=== PATIENT | female | born 1955 | race Caucasian/White ===

== ENCOUNTER 2017-01-10 11:34 | Outpatient (CLI) ==
[2016-04-14 07:38] VITALS: BMI 32.3
--- NOTE | 2017-01-10 12:17 | CT ---
EXAM: CT BRAIN HISTORY: Dizziness and giddiness TECHNIQUE: CT brain without intravenous contrast. 5-mm axial sections with Reformations. COMPARISON: 05/08/2015 FINDINGS: There is mild generalized atrophy and probable mild chronic microvascular ischemic change. These fi ndings are stable. Brain otherwise is unremarkable without distinct evidence of hemorrhage or large vessel distribution recent ischemic infarction. There is no suggestion of acute hydrocephalus or weinberg bdural fluid collection. No mass or mass effect. Cranium is within normal limits. Mastoid air cells are aerated. The visualized paranasal sinuses are clear. IMPRESSION: No acute intracranial process.
[2017-01-10 14:07] LABS: BASOPHILS % (AUTO) 0.9 % (0.0-3.0); EOSINOPHILS # (AUTO) 0.1 K/ul (0.0-0.7); HEMATOCRIT 37.1 % (37.0-47.0); HEMOGLOBIN 12.4 g/dl (12.0-16.0); IMMATURE GRANULOCYTE % (AUTO) 0.2 % (0.0-5.0); LYMPHOCYTES # (AUTO) 1.5 K/uL (0.60-3.4); LYMPHOCYTES % (AUTO) 34.2 (10.0-50.0); MEAN CORPUSCULAR HEMOGLOBIN 30.7 pg (27.0-31.0); MEAN CORPUSCULAR HGB CONC 33.4 (31.8-35.4); MEAN CORPUSCULAR VOLUME 91.8 fl (81.0-99.0); MONOCYTES # (AUTO) 0.3 K/uL (0.4-2.0); MONOCYTES % (AUTO) 6.3 (0-10); NEUTROPHILS # (AUTO) 2.4 K/ul (2.0-6.9); NEUTROPHILS % (AUTO) 55.4; PLATELET COUNT 240 10^3/uL (140-440); RED BLOOD COUNT 4.04 10^6/ul (4.20-5.40)
[2017-01-10 14:09] LABS: BILIRUBIN,URINE Negative (NEGATIVE); KETONES,URINE Negative (NEGATIVE); LEUKOCYTE ESTERASE ,URINE Trace (NEGATIVE); NITRITE,URINE Positive (NEGATIVE); PH,URINE 5.5 (5-9); PROTEIN,URINE Negative (NEGATIVE); URINE, BLOOD Negative (NEGATIVE)
[2017-01-10 14:13] LABS: ADD URINE MICROSCOPIC YES
[2017-01-10 14:14] LABS: BACTERIA,URINE 2+ (NOT PRESENT)
[2017-01-10 14:21] LABS: ALBUMIN 3.7 g/dL (3.4-5.0); ALBUMIN/GLOBULIN RATIO 1.19; ANION GAP 11.9; BILIRUBIN,TOTAL 0.39 mg/dL (0.00-1.20); BUN/CREATININE RATIO 9.19; CALCIUM 9.2 mg/dL (8.2-10.2); CHOL/HDL RATIO 3.3 (4.5-5.5); CREATININE 0.87 mg/dL (0.60-1.30); POTASSIUM 3.9 mmol/L (3.5-5.10); TOTAL PROTEIN 6.8 g/dL (5.8-8.1)
== END 2017-01-10 11:35 | disposition home or self-care (01) ==
LOC: RAD 11:34
PROVIDERS: ATTEND Emergency Medicine
DX: R55 Syncope and collapse (principal); R42 Dizziness and giddiness
CPT/HCPCS: 36415; 80053; 80061; 81001; 85025; 87086; 87186

== ENCOUNTER 2017-01-11 15:30 | Outpatient (CLI) ==
[2016-04-14 07:38] VITALS: BMI 32.3
--- NOTE | 2017-01-11 16:07 | US ---
EXAM: Bilateral carotid artery Doppler History: Syncope and collapse. Technique: Multiple sonographic images through the bilateral internal carotid arteries were obtaine d. Color duplex Doppler was used to interrogate vascular flow. Findings: The right ICA peak systolic velocities within normal limits measuring 1.0 meters per second. The ri ght ICA/cca PSV ratio is normal at 1.4. The right vertebral artery is patent and demonstrates anteg rade flow. Ozuna scale findings demonstrate no significant plaque buildup. The left ICA peak systolic velocity is moderately elevated measuring 1.6 meters per second. The lef t ICA/cca PSV ratio is normal at 1.8. The left vertebral artery is patent and demonstrates antegrad e flow. The left internal carotid artery is tortuous. Ozuna scale findings demonstrate no significa nt plaque buildup. Impression: No significant stenosis of the bilateral internal carotid arteries. The elevated left ICA peak systolic velocity is most likely spurious due to the tortuosity.
== END 2017-01-11 15:31 | disposition home or self-care (01) ==
LOC: RAD 15:30
PROVIDERS: ATTEND Emergency Medicine
DX: R55 Syncope and collapse (principal); R42 Dizziness and giddiness

== ENCOUNTER 2017-01-13 14:38 | Outpatient (CLI) ==
[2017-01-13 14:51] VITALS: BMI 29.0
== END 2017-01-13 14:39 | disposition critical access hospital (66) ==
LOC: AMBL 14:38
PROVIDERS: ATTEND Internal Medicine Geriatric Medicine
DX: R07.9 Chest pain, unspecified (principal); G43.909 Migraine, unspecified, not intractable, without status migrainosus; R10.9 Unspecified abdominal pain

== ENCOUNTER 2017-01-13 14:46 | Emergency (ER) ==
[2017-01-13 14:51] VITALS: BP 148/59; TEMP 98.6; BMI 29.0
[2017-01-13] MEDS ORDERED: ZOFRAN 4 MG/2 ML IVP STA (15:05)
--- NOTE | 2017-01-13 15:05 | ED.PDOC ---
General ED Provider: Dr. ZULEMA SAAB Chief Complaint: Headache Stated Complaint: Patient states she woke up this morning with headache nauea and vomiting. Time Seen by Physician: 15:05 Mode of Arrival: Ambulance Information Source: Patient, EMT Exam Limitations: No limitations [facility] and Triage Documentation Reviewed and Agree: Yes Neurological Complaint Exam - Headache Complaint/Exam Onset: Sudden Duration: 1 day Timing: Constant Worst Headache Ever: No Initial Severity: Severe Current Severity: Severe Character: Reports: Typical headache Alleviating: Reports: None Associated Signs and Symptoms: Reports: Nausea, Vomiting. Denies: Neck pain Related History: Reports: Similar episode Related Surgical History: Reports: None SAH Risk Factors: Reports: None Meningitis Risk Factors: Reports: None SDH Risk Factors: Reports: None Temporal Arteritis Risk Factors: Reports: None Normal Head CT Within Last 12 Months: Yes (less than one week ago. ) Fundoscopic Exam: Present: Normal Findings Papilledema Present: No Temporal Artery Tenderness: Present: None Sinus Tenderness: Present: None TMJ Tenderness: Present: None Glascow Coma Scale (see protocol): 15 Meningeal Signs Positive: No Pain on Passive Flexion-Positive Kernig's: No ROM Limited In: No Limitiations Focal Weakness: Present: None Focal Sensory Loss: Present: None Gait: Normal Nystagmus Present: No Gag Reflex Present: Yes [id number]: Abnormal right Romberg Test Positive: No Babinski Sign: Negative Right, Negative Left Heel to Toe Normal: No Differential Diagnoses: Migraine, Sinus Headache, Viral Syndrome Review of Systems - Review Of Systems Constitutional: Reports: Loss of appetite Eyes: Reports: Photophobia Ears, Nose, Mouth, Throat: Reports: No symptoms Respiratory: Reports: No symptoms Cardiac: Reports: Chest pain (across her chest mostly from vomiting. ) GI: Reports: Nausea, Poor appetite, Vomiting : Reports: No symptoms Musculoskeletal: Reports: No symptoms Skin: Reports: No symptoms Neurological: Reports: Anxiety, Headache Endocrine: Reports: No symptoms Hematologic/Lymphatic: Reports: No symptoms All Other Systems: Reviewed and Negative Past Medical History - Past Medical History Endocrine: Reports: Dyslipidemia Cardiovascular: Reports: None Respiratory: Reports: None Hematological: Reports: None Gastrointestinal: Reports: None Genitourinary: Reports: UTI (recenty diagnosed on antibiotics. ) Neuro/Psych: Reports: Migraine, Depression Musculoskeletal: Reports: Arthritis, Other Cancer: Reports: None Last Menstrual Period: NONE Other Pertinent Past Medical History: Arthritis - Surgical History General Surgical History: Reports: Hysterectomy, Tubal ligation, Cholecystectomy , Tonsillectomy, Pacemaker, Other (Breast lump ) - Family History Family History: Reports: None - Social History Smoking Status: Never smoker Hx Substance Use: No Alcohol Screening: None Physical Exam - Physical Exam Appearance: Ill-appearing, Well-nourished Ill-appearing: Moderate Pain Distress: Severe Eyes: BERRY, EOMI, Conjunctiva clear ENT: Ears normal, Nose normal, Oropharynx normal Neck: Supple Respiratory: Airway patent, Breath sounds clear, Breath sounds equal, Respirations nonlabored Cardiovascular: RRR, Pulses normal, No rub, No murmur GI/: Soft, Nontender, No masses, Bowel sounds normal, No Organomegaly Musculoskeletal: Normal strength, ROM intact, No edema, No calf tenderness Skin: Warm, Dry, Normal color Neurological: Sensation intact, Motor intact, Reflexes intact, Cranial nerves intact, Alert, Oriented Psychiatric: Affect appropriate, Mood appropriate Interpretation - Radiology Interpretation Radiology Interpretation By: Radiologist Radiology Results: Negative Exam Interpreted: CT Scan (reviewed recent CTdone on the December) Radiology Interpretation By: ED Physician Radiology Results: Negative Exam Interpreted: Portable CXR - EKG Interpretation Time of EKG #1: 15:15 Rate: Normal Rhythm: Sinus Ectopy: None [place]: NL ST Segment: Normal Critical Care Note - Critical Care Note Total Time (mins): 0 Course - Course Orders, Labs, Meds: Orders Category Date Time Status EKG-(ED ONLY) Stat CARDIO 01/13/17 15:05 Ordered ED IV/MEDIPORT/POWERPORT .ONCE EMERGENCY 01/13/17 15:06 Active AMYLASE Stat LAB 01/13/17 15:05 Ordered CBC W/ AUTO DIFF Stat LAB 01/13/17 15:05 Ordered COMPREHENSIVE METABOLIC PANEL Stat LAB 01/13/17 15:05 Ordered CREATINE KINASE Stat LAB 01/13/17 15:05 Ordered LIPASE Stat LAB 01/13/17 15:05 Ordered TROPONIN I Stat LAB 01/13/17 15:05 Ordered URINALYSIS C & S IF INDICATED Stat LAB 01/13/17 15:06 Uncollected 0.9 % Sodium Chloride [Saline Flush] MEDS 01/13/17 15:06 Ordered 1 syr IVF PRN PRN Ketorolac Tromethamine [Toradol] MEDS 01/13/17 15:08 Discontinued 30 mg IVP ONCE STA Ondansetron HCl/Pf [Zofran 4 mg/2 ml] MEDS 01/13/17 15:05 Discontinued 4 mg IVP ONCE STA Sodium Chloride 0.9% [Sodium Chloride] 1,000 ml MEDS 01/13/17 15:06 Active IV BOLUS CHEST, 1V AP ONLY Stat RADS 01/13/17 15:05 Ordered Medications Generic Name Dose Route Start Last Admin Trade Name Freq PRN Reason Stop Dose Admin Sodium Chloride 1,000 mls @ 1,000 mls/hr 01/13/17 15:06 Sodium Chloride IV 01/13/17 16:05 BOLUS STA Sodium Chloride 1 syr 01/13/17 15:06 Saline Flush IVF PRN PRN To flush IV Discontinued Medications Generic Name Dose Route Start Last Admin Trade Name Freq PRN Reason Stop Dose Admin Ketorolac Tromethamine 30 mg 01/13/17 15:08 Toradol IVP 01/13/17 15:09 ONCE STA Ondansetron HCl 4 mg 01/13/17 15:05 Zofran 4 Mg/2 Ml IVP 01/13/17 15:06 ONCE STA Vital Signs: Temp Pulse Resp BP Pulse Ox 01/13/17 14:46 98.6 F 100 H 20 148/59 H 99 Departure - Departure Time of Disposition: 16:01 Disposition: HOME SELF-CARE Discharge Problem: Classic migraine Qualifiers: Status migrainosus presence: without status migrainosus Intractability: not intractable Qualifier Code: (G43.109) Migraine with aura, not intractable, without status migrainosus Instructions: Migraine Headache (ED) Condition: Fair Pt referred to PMD for follow-up: Yes Additional Instructions: Push fluids Rest Follow up with PCP in 3 days Allergies/Adverse Reactions: Allergies tramadol HCl [From Ultra] Adverse Reaction (Verified 01/13/17 14:52) Home Medications: Ambulatory Orders Estrogens, Conjugated [Premarin] 1.25 mg PO DAILY 09/16/14 Ranitidine HCl [Zantac] 150 mg PO ONCE PRN 07/11/15 Disposition Discussed With: Patient
[2017-01-13] MEDS ORDERED: SODIUM CHLORIDE 1,000 ML IV STA (15:06)
[2017-01-13] MEDS ORDERED: TORADOL IVP STA (15:08)
[2017-01-13 15:20] LABS: BASOPHILS % (AUTO) 0.8 % (0.0-3.0); EOSINOPHILS # (AUTO) 0.1 K/ul (0.0-0.7); HEMATOCRIT 38.5 % (37.0-47.0); IMMATURE GRANULOCYTE % (AUTO) 0.2 % (0.0-5.0); LYMPHOCYTES # (AUTO) 1.4 K/uL (0.60-3.4); LYMPHOCYTES % (AUTO) 26.4 (10.0-50.0); MEAN CORPUSCULAR HEMOGLOBIN 30.1 pg (27.0-31.0); MEAN CORPUSCULAR HGB CONC 33.8 (31.8-35.4); MEAN CORPUSCULAR VOLUME 89.1 fl (81.0-99.0); MONOCYTES # (AUTO) 0.3 K/uL (0.4-2.0); NEUTROPHILS # (AUTO) 3.5 K/ul (2.0-6.9); NEUTROPHILS % (AUTO) 66.6; PLATELET COUNT 249 10^3/uL (140-440); RED BLOOD COUNT 4.32 10^6/ul (4.20-5.40); WHITE BLOOD COUNT 5.19 K/ul (4.6-10.2)
[2017-01-13 15:28] LABS: ADD URINE MICROSCOPIC NO; BILIRUBIN,URINE Negative (NEGATIVE); KETONES,URINE Negative (NEGATIVE); LEUKOCYTE ESTERASE ,URINE Negative (NEGATIVE); NITRITE,URINE Negative (NEGATIVE); PROTEIN,URINE Negative (NEGATIVE); URINE, BLOOD Negative (NEGATIVE)
--- NOTE | 2017-01-13 15:30 | DI ---
Exam: Single x-ray of the chest. Comparison: 12/28/2014. Reason for exam: Chest pain. FINDINGS: No pneumothorax, pleural effusion, or focal consolidation. The cardiac silhouette is not enlarged. The imaged osseous structures are unremarkable without acute fracture. Impression: No acute cardiopulmonary process.
[2017-01-13 15:46] LABS: ALANINE AMINOTRANSFERASE 11 U/L (12-78); ALBUMIN 3.7 g/dL (3.4-5.0); ALBUMIN/GLOBULIN RATIO 1.28; ALKALINE PHOSPHATASE 75 U/L (53-141); AMYLASE 40 U/L (25-115); ANION GAP 12.3; ASPARTATE AMINO TRANSFERASE 11 U/L (15-37); BILIRUBIN,TOTAL 0.45 mg/dL (0.00-1.20); BLOOD UREA NITROGEN 7 mg/dL (7-18); BUN/CREATININE RATIO 8.23; CALCIUM 9.2 mg/dL (8.2-10.2); CARBON DIOXIDE 23 mmol/L (23-31); CHLORIDE 111 mmol/L (98-107); CREATINE KINASE 69 U/L; CREATININE 0.85 mg/dL (0.60-1.30); GLUCOSE 114 mg/dL (82-115); LIPASE 18 U/L (8-78); POTASSIUM 3.3 mmol/L (3.5-5.10); SODIUM 143 mmol/L (136-145); TOTAL PROTEIN 6.6 g/dL (5.8-8.1)
== END 2017-01-13 16:23 | disposition home or self-care (01) ==
LOC: ED 14:46
DX: G43.109 Migraine with aura, not intractable, without status migrainosus (principal)
CPT/HCPCS: 36415; 80053; 81001; 82150; 82550; 83690; 84484; 85025; 93005; 93010; 96361; 96374; 96375; 99284

== ENCOUNTER 2017-02-25 14:03 | Outpatient (CLI) ==
[2017-02-25 14:23] VITALS: BMI 30.2
== END 2017-02-25 14:04 | disposition home or self-care (01) ==
LOC: AMBL 14:03
PROVIDERS: ATTEND Emergency Medicine
DX: R53.1 Weakness (principal); R42 Dizziness and giddiness

== ENCOUNTER 2017-02-25 14:15 | Emergency (ER) ==
[2017-02-25 14:23] VITALS: TEMP 97.5; BMI 30.2
[2017-02-25] MEDS ORDERED: SODIUM CHLORIDE IV STA (14:27)
[2017-02-25] MEDS ORDERED: ADDITIVE ONLY IV STA (14:27)
[2017-02-25] MEDS ORDERED: POTASSIUM CHLORIDE IV STA (14:27)
--- NOTE | 2017-02-25 14:34 | ED.PDOC ---
General ED Provider: Dr. ELIU THOMPSON JR Chief Complaint: Dizziness Stated Complaint: works at local [employer]--states shortly after arriving for work this am developed dizziness which did not get better--able to eat meals today-dizziness all the time--no change when changes position[End] 1230 97.5 75 20 100 124/66 had freq bouts of diarrhea during nite--none today[ End]diarhea for two days using green OTC pill. : 01/13/17 Dr. ZULEMA Rider 30 mg Ondansetron 4 :Migraine. : 04/02/16 : Dr. SINDHU Lew Care Provider: CARLA FAGAN Headache. : 03/04/16 ROTICH: Earache. : 12/31/15 : Tooth Problem: Rt lower molars Causing H/A. Anacin migraine. : 04/07 Acute Headache (ED)[Premarin] 1.25 m[Zantac] 150. :: 10/10/15 Dilaudid 1 mg [Toradol 60 mg Phenergan 25 mg Migraine,CT05/06 normal. : 10/03 Morphine 4 Zofran 4. PremarinFioricet Zyrtec-DRanitidine HCl. : 06/24/15 Headache Toradol 60 mg Solu-Medrol 125 mg. : Negative: CT Scan (OLD CT FROM 05/08/15 SHOWS FLUID IN PETROUS CHRONIC SMALL VESSEL DISEASE OTHERWISE NORTMAL) . Ketorolac Tromethamine 60 Phenergan 25: Acute Headache (ED), Toothache (ED) Time Seen by Physician: 14:20 Mode of Arrival: Ambulance Information Source: Patient, EMT Exam Limitations: No limitations, Dementia Primary Care [facility] Nursing and Triage Documentation Reviewed and Agree: No Review of Systems - Review Of Systems Constitutional: Reports: Malaise, Weakness Eyes: Reports: No symptoms Ears, Nose, Mouth, Throat: Reports: No symptoms Respiratory: Reports: No symptoms Cardiac: Reports: No symptoms GI: Reports: Diarrhea : Reports: No symptoms Musculoskeletal: Reports: No symptoms Skin: Reports: No symptoms Neurological: Reports: Other (dizziness light headed minmal spinning sensation mostly lightheaded) Endocrine: Reports: No symptoms Hematologic/Lymphatic: Reports: No symptoms All Other Systems: Other Past Medical History - Past Medical History Endocrine: Reports: Dyslipidemia Cardiovascular: Reports: None Respiratory: Reports: None Hematological: Reports: None Gastrointestinal: Reports: None Genitourinary: Reports: UTI Neuro/Psych: Reports: Migraine, Depression Musculoskeletal: Reports: Arthritis Cancer: Reports: None Last Menstrual Period: hysterectomy - Surgical History General Surgical History: Reports: Hysterectomy, Tubal ligation, (c- sec x3,), Cholecystectomy, Tonsillectomy, Pacemaker, Orthopedic (neck surgery ), Other (Breast lump, lump removed both breasts, ) - Family History Family History: Reports: None - Social History Smoking Status: Never smoker Hx Substance Use: No Alcohol Screening: None Physical Exam - Physical Exam Appearance: Well-appearing Pain Distress: Mild Eyes: BERRY, EOMI, Conjunctiva clear ENT: Ears normal, Nose normal, Oropharynx normal Neck: Supple Respiratory: Airway patent, Breath sounds clear, Breath sounds equal, Respirations nonlabored Cardiovascular: RRR, Pulses normal, No rub, No murmur GI/: Soft, Nontender, No masses, Bowel sounds normal, No Organomegaly Musculoskeletal: Normal strength, ROM intact, No edema, No calf tenderness Skin: Warm, Dry, Normal color Neurological: Sensation intact, Motor intact, Reflexes intact, Cranial nerves intact, Alert, Oriented Psychiatric: Affect appropriate, Mood appropriate Interpretation - Radiology Interpretation Radiology Interpretation By: ED Physician Radiology Results: Negative Exam Interpreted: CXR Radiology Interpretation By: Radiologist Radiology Results: No acute changes Exam Interpreted: CXR - EKG Interpretation Time of EKG #1: 14:35 Rate: Normal Rhythm: Sinus ST Segment: Other (low voltage no acute changes) Re-Evaluation - Re-Evaluation Time of Re-Evaluation: 16:15 (still dizi) Critical Care Note - Critical Care Note Total Time (mins): 0 Course - Course Hematology/Chemistry: 02/25/17 14:33 02/25/17 14:33 Orders, Labs, Meds: Lab Review 02/25/17 02/25/17 14:33 15:45 WBC 5.47 RBC 3.88 L Hgb 11.9 L Hct 35.2 L MCV 90.7 MCH 30.7 MCHC 33.8 RDW Coeff of [place] 13.2 Plt Count 209 Immature Gran % (Auto) 0.2 Neut % (Auto) 65.1 Lymph % (Auto) 26.7 [place] % (Auto) 5.3 Eos % (Auto) 1.8 Baso % (Auto) 0.9 Immature Gran # (Auto) 0.0 Neut # 3.6 Lymph # 1.5 [place] # 0.3 L Eos # 0.1 Baso # 0.1 D-Dimer (Manual) 486.20 Sodium 143 Potassium 3.5 Chloride 109 H Carbon Dioxide 26 Anion Gap 11.5 BUN 11 Creatinine 0.91 Estimated GFR (MDRD) 63.00 BUN/Creatinine Ratio 12.08 Glucose 76 L Calcium 8.7 Total Bilirubin 0.29 AST 9 L ALT 11 L Alkaline Phosphatase 74 Total Creatine Kinase 54 Troponin I < 0.0100 B-Natriuretic Peptide 28 Total Protein 6.3 Albumin 3.6 Globulin 2.7 Albumin/Globulin Ratio 1.33 Procalcitonin < 0.05 Urine Color Yellow Urine Clarity Clear Urine pH 7.0 Ur Specific [place] 1.015 Urine Protein Negative Urine Glucose (UA) Negative Urine Ketones Negative Urine Blood Negative Urine Nitrite Negative Urine Bilirubin Negative Urine Urobilinogen 0.2 Ur Leukocyte Esterase Negative Orders Category Date Time Status EKG-(ED ONLY) Stat CARDIO 02/25/17 14:26 Completed ED IV/MEDIPORT/POWERPORT .ONCE EMERGENCY 02/25/17 14:26 Active Orthostatic Vital Signs [ED ORTHOSTATIC VITAL SIGNS] . EMERGENCY 02/25/17 15: 51 Active ONCE B-TYPE NATRIURETIC PEPTIDE Stat LAB 02/25/17 14:33 Completed CBC W/ AUTO DIFF Stat LAB 02/25/17 14:33 Completed COMPREHENSIVE METABOLIC PANEL Stat LAB 02/25/17 14:33 Completed CREATINE KINASE Stat LAB 02/25/17 14:33 Completed D-DIMER Stat LAB 02/25/17 14:33 Completed PROCALCITONIN Stat LAB 02/25/17 14:33 Completed TROPONIN I Stat LAB 02/25/17 14:33 Completed URINALYSIS C & S IF INDICATED Stat LAB 02/25/17 15:45 Completed 0.9 % Sodium Chloride [Saline Flush] MEDS 02/25/17 14:26 Ordered 1 syr IVF PRN PRN Meclizine HCl [Antivert] MEDS 02/25/17 15:51 Discontinued 25 mg PO ONCE STA Potassium Chloride in 0.9%NaCl [Sodium Chloride 0.9%- MEDS 02/25/17 14:34 Active KCl 20 Meq] 1,000 ml IV 100 mls/hr CHEST, 1V AP ONLY Stat RADS 02/25/17 14:26 Completed Medications Generic Name Dose Route Start Last Admin Trade Name Richie PRN Reason Stop Dose Admin Potassium Chloride/Sodium Chloride 1,000 mls @ 100 mls/hr 02/25/17 14:34 Sodium Chloride 0.9%-Kcl 20 Meq IV 02/26/17 00:33 .Q10H STA Sodium Chloride 1 syr 02/25/17 14:26 Saline Flush IVF PRN PRN To flush IV Discontinued Medications Generic Name Dose Route Start Last Admin Trade Name Freq PRN Reason Stop Dose Admin Meclizine HCl 25 mg 02/25/17 15:51 02/25/17 15:59 Antivert PO 02/25/17 15:52 25 mg ONCE STA Administration Vital Signs: Temp Pulse Resp BP Pulse Ox 02/25/17 16:00 64 120/75 02/25/17 15:59 59 L 118/71 02/25/17 14:17 97.5 F L 75 20 124/66 100 Departure - Departure Time of Disposition: 15:27 Disposition: HOME SELF-CARE Discharge Problem: Dizziness, Vertigo, Dehydration Instructions: Vertigo (ED), Dehydration (ED) Condition: Good Pt referred to PMD for follow-up: Yes Additional Instructions: plenty of fluids for three days consider peptobismol only as needed for loose stools may try antivert for any dizziness(causes drowsiness) return if fever over 101.0 or if worse Please follow-up with PMD this week Prescriptions: Meclizine HCl [Antivert] 25 mg PO QID PRN #30 tablet PRN Reason: Dizziness Allergies/Adverse Reactions: Allergies tramadol HCl [From Ultra777 [place]] Adverse Reaction (Verified 02/25/17 14:27) Home Medications: Ambulatory Orders Estrogens, Conjugated [Premarin] 1.25 mg PO DAILY 09/16/14 Ranitidine HCl [Zantac] 150 mg PO ONCE PRN 07/11/15 Aspirin/Acetaminophen/Caffeine [Excedrin Extra Strength Caplet] 1 each PO DIRECTED PRN 01/16/17 Meclizine HCl [Antivert] 25 mg PO QID PRN #30 tablet 02/25/17
[2017-02-25 14:39] LABS: HEMATOCRIT 35.2 % (37.0-47.0); HEMOGLOBIN 11.9 g/dl (12.0-16.0); MEAN CORPUSCULAR HEMOGLOBIN 30.7 pg (27.0-31.0); MEAN CORPUSCULAR VOLUME 90.7 fl (81.0-99.0); RED BLOOD COUNT 3.88 10^6/ul (4.20-5.40); WHITE BLOOD COUNT 5.47 K/ul (4.6-10.2)
[2017-02-25 14:40] LABS: BASOPHILS # (AUTO) 0.1 K/uL (0-0.2); BASOPHILS % (AUTO) 0.9 % (0.0-3.0); EOSINOPHILS # (AUTO) 0.1 K/ul (0.0-0.7); EOSINOPHILS % (AUTO) 1.8 % (0.0-7.0); IMMATURE GRANULOCYTE % (AUTO) 0.2 % (0.0-5.0); LYMPHOCYTES # (AUTO) 1.5 K/uL (0.60-3.4); LYMPHOCYTES % (AUTO) 26.7 (10.0-50.0); MEAN CORPUSCULAR HGB CONC 33.8 (31.8-35.4); MONOCYTES # (AUTO) 0.3 K/uL (0.4-2.0); MONOCYTES % (AUTO) 5.3 (0-10); NEUTROPHILS # (AUTO) 3.6 K/ul (2.0-6.9); NEUTROPHILS % (AUTO) 65.1; PLATELET COUNT 209 10^3/uL (140-440)
--- NOTE | 2017-02-25 14:55 | DI ---
Exam: Single x-ray of the chest. Comparison: 01/13/2017. Reason for exam: Chest pain. FINDINGS: No pneumothorax, pleural effusion, or focal consolidation. The cardiac silhouette is not enlarged. The imaged osseous structures appear grossly unremarkable without acute fracture. Impression: No acute cardiopulmonary process.
[2017-02-25 15:09] LABS: ALANINE AMINOTRANSFERASE 11 U/L (12-78); ALBUMIN 3.6 g/dL (3.4-5.0); ALBUMIN/GLOBULIN RATIO 1.33; ALKALINE PHOSPHATASE 74 U/L (53-141); ANION GAP 11.5; ASPARTATE AMINO TRANSFERASE 9 U/L (15-37); BILIRUBIN,TOTAL 0.29 mg/dL (0.00-1.20); CALCIUM 8.7 mg/dL (8.2-10.2); CARBON DIOXIDE 26 mmol/L (23-31); CHLORIDE 109 mmol/L (98-107); CREATINE KINASE 54 U/L; CREATININE 0.91 mg/dL (0.60-1.30); GLUCOSE 76 mg/dL (82-115); POTASSIUM 3.5 mmol/L (3.5-5.10); SODIUM 143 mmol/L (136-145); TOTAL PROTEIN 6.3 g/dL (5.8-8.1)
[2017-02-25 15:23] LABS: BLOOD UREA NITROGEN 11 mg/dL (7-18); BUN/CREATININE RATIO 12.08
[2017-02-25 15:54] LABS: ADD URINE MICROSCOPIC NO; BILIRUBIN,URINE Negative (NEGATIVE); KETONES,URINE Negative (NEGATIVE); LEUKOCYTE ESTERASE ,URINE Negative (NEGATIVE); NITRITE,URINE Negative (NEGATIVE); PROTEIN,URINE Negative (NEGATIVE); URINE, BLOOD Negative (NEGATIVE)
[2017-02-25] MEDS: ANTIVERT PO STA (15:59)
[2017-02-25 16:01] VITALS: BP 130/66
[2017-02-25] MEDS: SODIUM CHLORIDE 0.9%-KCL 20 MEQ 1,000 ML IV STA (16:36)
== END 2017-02-25 17:13 | disposition home or self-care (01) ==
LOC: ED 14:15
DX: R42 Dizziness and giddiness (principal); R19.7 Diarrhea, unspecified; E78.5 Hyperlipidemia, unspecified; E86.0 Dehydration; Z95.0 Presence of cardiac pacemaker
CPT/HCPCS: 36415; 80053; 81001; 82550; 83880; 84145; 84484; 85025; 85379; 93005; 93010; 96360; 99283

== ENCOUNTER 2017-03-06 16:44 | Emergency (ER) ==
[2017-03-06 16:49] VITALS: BP 138/81; TEMP 97.8; BMI 28.5
[2017-03-06] MEDS ORDERED: MORPHINE 4 MG/ML SYRINGE IM STA ×2 (17:01→18:09)
[2017-03-06] MEDS ORDERED: ZOFRAN 4 MG/2 ML IM STA (17:01)
[2017-03-06 17:12] LABS: BASOPHILS # (AUTO) 0.1 K/uL (0-0.2); BASOPHILS % (AUTO) 0.5 % (0.0-3.0); EOSINOPHILS # (AUTO) 0.1 K/ul (0.0-0.7); EOSINOPHILS % (AUTO) 0.9 % (0.0-7.0); HEMATOCRIT 38.7 % (37.0-47.0); HEMOGLOBIN 13.3 g/dl (12.0-16.0); IMMATURE GRANULOCYTE % (AUTO) 0.2 % (0.0-5.0); LYMPHOCYTES # (AUTO) 1.6 K/uL (0.60-3.4); LYMPHOCYTES % (AUTO) 16.6 (10.0-50.0); MEAN CORPUSCULAR HEMOGLOBIN 30.6 pg (27.0-31.0); MEAN CORPUSCULAR HGB CONC 34.4 (31.8-35.4); MEAN CORPUSCULAR VOLUME 89.2 fl (81.0-99.0); MONOCYTES # (AUTO) 0.4 K/uL (0.4-2.0); MONOCYTES % (AUTO) 4.4 (0-10); NEUTROPHILS # (AUTO) 7.3 K/ul (2.0-6.9); NEUTROPHILS % (AUTO) 77.4; PLATELET COUNT 244 10^3/uL (140-440); RED BLOOD COUNT 4.34 10^6/ul (4.20-5.40); WHITE BLOOD COUNT 9.37 K/ul (4.6-10.2)
[2017-03-06 17:31] LABS: BILIRUBIN,URINE Negative (NEGATIVE); KETONES,URINE Negative (NEGATIVE); LEUKOCYTE ESTERASE ,URINE Negative (NEGATIVE); NITRITE,URINE Negative (NEGATIVE); PH,URINE 5.5 (5-9); PROTEIN,URINE Negative (NEGATIVE); URINE, BLOOD Negative (NEGATIVE)
[2017-03-06 17:32] LABS: ADD URINE MICROSCOPIC NO
[2017-03-06 17:36] LABS: ALBUMIN/GLOBULIN RATIO 1.29; ANION GAP 13.7; BILIRUBIN,TOTAL 0.34 mg/dL (0.00-1.20); BUN/CREATININE RATIO 12.19; CALCIUM 9.4 mg/dL (8.2-10.2); CREATININE 0.82 mg/dL (0.60-1.30); POTASSIUM 3.7 mmol/L (3.5-5.10); TOTAL PROTEIN 7.1 g/dL (5.8-8.1)
--- NOTE | 2017-03-06 18:02 | CT ---
EXAM: CT ABDOMEN AND PELVIS HISTORY: Abdominal pain TECHNIQUE: CT abdomen and pelvis without intravenous contrast. Images were reconstructed using 3 m m section thickness. Reformations were prepared. COMPARISON: 12/28/2014 FINDINGS: Diagnostic limitations exist without including contrast enhanced images. No focal hepatic or spleni c lesions. Gallbladder is absent. Pancreas, adrenal glands, kidneys and ureters appear normal. No rmal abdominal aorta. Stomach within normal limits. What probably represents the appendix has no evidence of inflammation . There is mild wall thickening of the colon in a relatively diffuse manner. The small bowel probab ly has mild fold thickening diffusely. There is no bowel obstruction. There appears to be a mass i n the cul-de-sac which is suggestive of a small uterus. Patient documents presented with this exam indicate previous hysterectomy. If there has been a hysterectomy, pelvic ultrasound is recommended for further evaluation and help exclude vaginal cuff or other regional pathology. Urinary bladder i s normal. No ascites. No abdominal wall hernia. The bones reveal moderate degenerative changes of the lower spine with mi ld scoliosis. Lung bases are free of acute infiltrate. No pneumoperitoneum. IMPRESSION: 1. Findings consistent with early enterocolitis. No bowel obstruction, free air or ascites. 2. There appears to be a mass in the cul-de-sac which is suggestive of a small uterus. Patient doc uments presented with this exam indicate previous hysterectomy. If there has been a hysterectomy, p elvic ultrasound is recommended for further evaluation and help exclude vaginal cuff or other region al pathology.
--- NOTE | 2017-03-06 18:11 | ED.PDOC ---
General ED Provider: Dr. SINDHU PEÑA Chief Complaint: Abdominal Pain Stated Complaint: abdominal pain Time Seen by Physician: 16:44 Mode of Arrival: Walk-In Information Source: Patient Exam Limitations: No limitations [facility] T[facility] Documentation Reviewed and Agree: Yes Review of Systems - Review Of Systems Constitutional: Reports: No symptoms Eyes: Reports: No symptoms Ears, Nose, Mouth, Throat: Reports: No symptoms Respiratory: Reports: No symptoms Cardiac: Reports: No symptoms GI: Reports: Abdominal pain : Reports: No symptoms Musculoskeletal: Reports: No symptoms Skin: Reports: No symptoms Neurological: Reports: No symptoms Endocrine: Reports: No symptoms Hematologic/Lymphatic: Reports: No symptoms All Other Systems: Reviewed and Negative Past Medical History - Past Medical History Endocrine: Reports: Dyslipidemia Cardiovascular: Reports: None Respiratory: Reports: None Hematological: Reports: None Gastrointestinal: Reports: None Genitourinary: Reports: UTI Neuro/Psych: Reports: Migraine, Depression Musculoskeletal: Reports: Arthritis Cancer: Reports: None Last Menstrual Period: none Other Pertinent Past Medical History: neck surgery 02/11/16 - Surgical History General Surgical History: Reports: Hysterectomy, Tubal ligation, (c- sec x3,), Cholecystectomy, Tonsillectomy, Pacemaker, Orthopedic (neck surgery ), Other (Breast lump, lump removed both breasts, ) - Family History Family History: Reports: None - Social History Smoking Status: Never smoker Hx Substance Use: No Alcohol Screening: None Physical Exam - Physical Exam Appearance: Well-appearing, No pain distress, Well-nourished Eyes: BERRY, EOMI, Conjunctiva clear ENT: Ears normal, Nose normal, Oropharynx normal Respiratory: Airway patent, Breath sounds clear, Breath sounds equal, Respirations nonlabored Cardiovascular: RRR, Pulses normal, No rub, No murmur GI/: Soft, Nontender, No masses, Bowel sounds normal, No Organomegaly Musculoskeletal: Normal strength, ROM intact, No edema, No calf tenderness Skin: Warm, Dry, Normal color Neurological: Sensation intact, Motor intact, Reflexes intact, Cranial nerves intact, Alert, Oriented Psychiatric: Affect appropriate, Mood appropriate Interpretation - Radiology Interpretation Radiology Interpretation By: Radiologist Radiology Results: Positive (possible vaginal cuff pathology pt made aware with adali at bedside) Critical Care Note - Critical Care Note Total Time (mins): 0 Course - Course Hematology/Chemistry: 03/06/17 17:05 03/06/17 17:05 Orders, Labs, Meds: Lab Review 03/06/17 03/06/17 17:00 17:05 WBC 9.37 RBC 4.34 Hgb 13.3 Hct 38.7 MCV 89.2 MCH 30.6 MCHC 34.4 RDW Coeff of [place] 13.3 Plt Count 244 Immature Gran % (Auto) 0.2 Neut % (Auto) 77.4 Lymph % (Auto) 16.6 [place] % (Auto) 4.4 Eos % (Auto) 0.9 Baso % (Auto) 0.5 Immature Gran # (Auto) 0.0 Neut # 7.3 H Lymph # 1.6 [place] # 0.4 Eos # 0.1 Baso # 0.1 Sodium 143 Potassium 3.7 Chloride 107 Carbon Dioxide 26 Anion Gap 13.7 BUN 10 Creatinine 0.82 Estimated GFR (MDRD) 71.00 BUN/Creatinine Ratio 12.19 Glucose 93 Calcium 9.4 Total Bilirubin 0.34 AST 10 L ALT 10 L Alkaline Phosphatase 80 Total Protein 7.1 Albumin 4.0 Globulin 3.1 Albumin/Globulin Ratio 1.29 Amylase 45 Lipase 25 Urine Color Yellow Urine Clarity Clear Urine pH 5.5 Ur Specific [place] 1.020 Urine Protein Negative Urine Glucose (UA) Negative Urine Ketones Negative Urine Blood Negative Urine Nitrite Negative Urine Bilirubin Negative Urine Urobilinogen 0.2 Ur Leukocyte Esterase Negative Orders Category Date Time Status AMYLASE Stat LAB 03/06/17 17:05 Completed CBC W/ AUTO DIFF Stat LAB 03/06/17 17:05 Completed COMPREHENSIVE METABOLIC PANEL Stat LAB 03/06/17 17:05 Completed LIPASE Stat LAB 03/06/17 17:05 Completed URINALYSIS C & S IF INDICATED Stat LAB 03/06/17 17:00 Completed Morphine Sulfate [Morphine 4 mg/ml Syringe] MEDS 03/06/17 17:01 Discontinued 4 mg IM ONCE STA Ondansetron HCl/Pf [Zofran 4 mg/2 ml] MEDS 03/06/17 17:01 Discontinued 4 mg IM ONCE STA CT ABDOMEN/PELVIS WO CONTRAST Stat RADS 03/06/17 17:00 Completed Medications Discontinued Medications Generic Name Dose Route Start Last Admin Trade Name Freq PRN Reason Stop Dose Admin Morphine Sulfate 4 mg 03/06/17 17:01 03/06/17 17:30 Morphine 4 Mg/Ml Syringe IM 03/06/17 17:02 4 mg ONCE STA Administration Ondansetron HCl 4 mg 03/06/17 17:01 03/06/17 17:29 Zofran 4 Mg/2 Ml IM 03/06/17 17:02 4 mg ONCE STA Administration Vital Signs: Temp Pulse Resp BP Pulse Ox 03/06/17 16:44 97.8 F 69 20 138/81 99 Departure - Departure Time of Disposition: 18:10 (need for pelvic U.S. discussed pt must follow up with [facility]) Disposition: HOME SELF-CARE Discharge Problem: Abdominal pain, Enterocolitis Instructions: Abdominal Pain (ED) Condition: Good Pt referred to PMD for follow-up: Yes Allergies/Adverse Reactions: Allergies tramadol HCl [From [facility]] Adverse Reaction (Verified 03/06/17 16:49) Home Medications: Ambulatory Orders Ranitidine HCl [Zantac] 150 mg PO ONCE PRN 07/11/15 Aspirin/Acetaminophen/Caffeine [Excedrin Extra Strength Caplet] 1 each PO DIRECTED PRN 01/16/17 Hydrocodone/Acetaminophen [[place] 10-325 Tablet] 1 each PO Q8HR #7 tablet
== END 2017-03-06 18:37 | disposition home or self-care (01) ==
LOC: ED 16:44
DX: K52.9 Noninfective gastroenteritis and colitis, unspecified (principal); R10.9 Unspecified abdominal pain
CPT/HCPCS: 36415; 80053; 81001; 82150; 83690; 85025; 96372; 99283

== ENCOUNTER 2017-03-09 09:08 | Outpatient (CLI) ==
--- NOTE | 2017-03-09 10:21 | US ---
Exam: Ozuna-scale and color Doppler ultrasonographic evaluation of the pelvis. Transvaginal probe was utilized for better anatomic visualization. Reason for exam: Generalized abdominal pain. Comparison: CT performed 03/06/2017. FINDINGS: The uterus is been removed. There is a cystic structure within the cervix measuring approximately 0 .31 x 0.23 x 0.32 cm likely a Nabothian cyst. The ovaries were not seen. There is free fluid seen in the right татьяна pelvis. Impression: 1. Small to moderate amount of free fluid seen in the right татьяна pelvis in the expected location of the right adnexa. 2. Nabothian cysts.
== END 2017-03-09 09:09 ==
LOC: RAD 09:08
PROVIDERS: ATTEND Emergency Medicine
DX: R10.84 Generalized abdominal pain (principal)

== ENCOUNTER 2017-08-05 12:56 | Emergency (ER) ==
[2017-08-05 13:02] VITALS: TEMP 98.1; BMI 27.4
[2017-08-05] MEDS ORDERED: ZOFRAN ODT PO STA ×2 (15:11→17:38)
--- NOTE | 2017-08-05 17:34 | ED.PDOC ---
General ED Provider: Dr. SWETHA ARMENTA Chief Complaint: Headache Stated Complaint: Hx migraine headaches. Onset flu symptoms this morning with nausea, vomiting and diarrhea Time Seen by Physician: 16:00 Mode of Arrival: Walk-In Information Source: Patient [facility] Nursing and Triage Documentation Reviewed and Agree: Yes Reviewed sepsis parameters & appropriate labs ordered?: Yes System Inflammatory Response Syndrome: Not Applicable Sepsis Protocol: For patient's 13 years and over: Temp is 96.8 and below OR 101 and greater Pulse >90 BPM Resp >20/minute Acutely Altered Mental Status Are patient's symptoms suggestive of a new infection, such as: -Pneumonia -Skin, Soft Tissue -Endocarditis -UTI -Bone, Joint Infection -Implantable Device -Acute Abdominal Infection -Wound Infection -Meningitis -Blood Stream Catheter Infection -Unknown System Inflammatory Response Syndrome: Not Applicable Neurological Complaint Exam - Headache Complaint/Exam Onset: Sudden Symptoms Are: Still present Timing: Constant Episodes Lasting: Minutes Worst Headache Ever: No Initial Severity: Moderate Current Severity: Mild Location: Frontal Character: Reports: Pressure, Typical headache Aggravating: Reports: Position change, Bright lights Alleviating: Reports: Rest Associated Signs and Symptoms: Reports: Dizziness, Nausea, Vomiting Related History: Reports: Similar episode Related Surgical History: Reports: None SAH Risk Factors: Reports: None Meningitis Risk Factors: Reports: None SDH Risk Factors: Reports: None Temporal Arteritis Risk Factors: Reports: None Normal Head CT Within Last 12 Months: Yes Fundoscopic Exam: Present: Normal Findings Papilledema Present: Yes Temporal Artery Tenderness: Present: None Meningeal Signs Positive: No Pain on Passive Flexion-Positive Kernig's: No ROM Limited In: No Limitiations Focal Weakness: Present: None Focal Sensory Loss: Present: None Gait: Normal Nystagmus Present: No Gag Reflex Present: Yes [id number]: Normal Findings Heel to Toe Normal: No Differential Diagnoses: Tension Headache, Viral Syndrome, Other (migraine headache) Review of Systems - Review Of Systems Constitutional: Reports: Weakness Eyes: Reports: Photophobia Ears, Nose, Mouth, Throat: Reports: No symptoms Respiratory: Reports: No symptoms Cardiac: Reports: No symptoms GI: Reports: Diarrhea, Nausea, Vomiting : Reports: No symptoms Musculoskeletal: Reports: No symptoms Skin: Reports: No symptoms Neurological: Reports: Headache Endocrine: Reports: No symptoms Hematologic/Lymphatic: Reports: No symptoms All Other Systems: Reviewed and Negative Past Medical History - Past Medical History Endocrine: Reports: Dyslipidemia Cardiovascular: Reports: None Respiratory: Reports: None Hematological: Reports: None Gastrointestinal: Reports: None Genitourinary: Reports: UTI Neuro/Psych: Reports: Migraine, Depression Musculoskeletal: Reports: Arthritis Cancer: Reports: None Last Menstrual Period: na Other Pertinent Past Medical History: neck surgery 02/11/16 - Surgical History General Surgical History: Reports: Hysterectomy, Tubal ligation, (c- sec x3,), Cholecystectomy, Tonsillectomy, Pacemaker, Orthopedic (neck surgery ), Other (Breast lump, lump removed both breasts, ) - Family History Family History: Reports: None - Social History Smoking Status: Never smoker Hx Substance Use: No Alcohol Screening: None - Immunizations Tetanus Shot up to Date: No Physical Exam - Physical Exam Appearance: Ill-appearing Ill-appearing: Mild Pain Distress: Moderate Eyes: BERRY, EOMI, Conjunctiva clear ENT: Ears normal, Nose normal, Oropharynx normal Neck: Supple Respiratory: Airway patent, Breath sounds clear, Breath sounds equal Cardiovascular: RRR, Pulses normal GI/: Soft, Nontender, No masses, Bowel sounds normal Musculoskeletal: Normal strength, ROM intact, No edema, No calf tenderness Skin: Warm, Dry, Normal color Neurological: Sensation intact, Motor intact, Reflexes intact, Cranial nerves intact, Alert, Oriented Psychiatric: Affect appropriate Re-Evaluation - Re-Evaluation Time of Re-Evaluation: 18:30 Status: Unchanged Vital Signs Stable: Yes Appearance: NAD Lungs: Clear Skin: Warm and Dry Neuro: Alert and Oriented X3 CV: RRR Additional Comments: Continues with cephalgia/ unreleived by Toradol/normally requires Morpine Course - Course Hematology/Chemistry: 08/05/17 15:22 08/05/17 15:22 Orders, Labs, Meds: Lab Review 08/05/17 08/05/17 08/05/17 15:22 15:22 15:22 WBC 6.23 RBC 4.17 L Hgb 12.8 Hct 37.2 MCV 89.2 MCH 30.7 MCHC 34.4 RDW Coeff of Nixon 12.9 Plt Count 225 Immature Gran % (Auto) 0.2 Neut % (Auto) 68.8 Lymph % (Auto) 24.7 [place] % (Auto) 4.2 Eos % (Auto) 1.1 Baso % (Auto) 1.0 Immature Gran # (Auto) 0.0 Neut # 4.3 Lymph # 1.5 [place] # 0.3 L Eos # 0.1 Baso # 0.1 Sodium 142 Potassium 4.0 Chloride 111 H Carbon Dioxide 25 Anion Gap 10.0 BUN 10 Creatinine 0.67 Estimated GFR (MDRD) 89.00 BUN/Creatinine Ratio 14.92 Glucose 107 Calcium 8.8 Total Bilirubin 0.3 AST 10 L ALT 10 L Alkaline Phosphatase 76 Total Protein 6.2 Albumin 3.4 Globulin 2.8 Albumin/Globulin Ratio 1.21 Urine Color Urine Clarity Urine pH Ur Specific [place] Urine Protein Urine Glucose (UA) Urine Ketones Urine Blood Urine Nitrite Urine Bilirubin Urine Urobilinogen Ur Leukocyte Esterase Urine Microscopic RBC Ur Squamous Epith Cells Urine Bacteria Influenza A (Rapid) Negative by naat Influenza B (Rapid) Negative by naat 08/05/17 16:30 WBC RBC Hgb Hct MCV MCH MCHC RDW Coeff of Nixon Plt Count Immature Gran % (Auto) Neut % (Auto) Lymph % (Auto) [place] % (Auto) Eos % (Auto) Baso % (Auto) Immature Gran # (Auto) Neut # Lymph # [place] # Eos # Baso # Sodium Potassium Chloride Carbon Dioxide Anion Gap BUN Creatinine Estimated GFR (MDRD) BUN/Creatinine Ratio Glucose Calcium Total Bilirubin AST ALT Alkaline Phosphatase Total Protein Albumin Globulin Albumin/Globulin Ratio Urine Color Yellow Urine Clarity Clear Urine pH 7.5 Ur Specific [place] 1.015 Urine Protein Negative Urine Glucose (UA) Negative Urine Ketones Negative Urine Blood Trace-intact Urine Nitrite Negative Urine Bilirubin Negative Urine Urobilinogen 0.2 Ur Leukocyte Esterase Trace Urine Microscopic RBC 0-2 Ur Squamous Epith Cells Not present Urine Bacteria 1+ Influenza A (Rapid) Influenza B (Rapid) Orders Category Date Time Status CBC W/ AUTO DIFF Stat LAB 08/05/17 15:22 Completed CMP [COMPREHENSIVE METABOLIC PANEL] Stat LAB 08/05/17 15:22 Completed FLU A/B MOLECULAR Stat LAB 08/05/17 15:22 Completed MOLECULAR GROUP A STREP Stat LAB 08/05/17 15:22 Completed URINALYSIS C & S IF INDICATED Stat LAB 08/05/17 16:30 Completed URINE CULTURE Routine LAB 08/05/17 16:30 Received Ketorolac Tromethamine [Toradol] MEDS 08/05/17 17:38 Discontinued 30 mg IM ONCE STA Morphine Sulfate [Morphine 2 mg/ml Syringe] MEDS 08/05/17 19:05 Stat 2 mg IM ONCE STA Ondansetron [Zofran Odt] MEDS 08/05/17 15:11 Discontinued 4 mg PO ONCE STA Ondansetron [Zofran Odt] MEDS 08/05/17 17:38 Discontinued 4 mg PO ONCE STA Medications Discontinued Medications Generic Name Dose Route Start Last Admin Trade Name Richie PRN Reason Stop Dose Admin Ketorolac Tromethamine 30 mg 08/05/17 17:38 08/05/17 17:48 Toradol IM 08/05/17 17:39 30 mg ONCE STA Administration Morphine Sulfate 2 mg 08/05/17 19:05 Morphine 2 Mg/Ml Syringe IM 08/05/17 19:06 ONCE STA Ondansetron HCl 4 mg 08/05/17 15:11 08/05/17 15:20 Zofran Odt PO 08/05/17 15:12 4 mg ONCE STA Administration Ondansetron HCl 4 mg 08/05/17 17:38 08/05/17 17:48 Zofran Odt PO 08/05/17 17:39 4 mg ONCE STA Administration Vital Signs: Temp Pulse Resp BP Pulse Ox 08/05/17 12:58 98.1 F 79 20 148/92 H 98 Departure - Departure Disposition: HOME SELF-CARE Discharge Problem: Flu syndrome, Migraine Instructions: Ibuprofen (By mouth) Pt referred to PMD for follow-up: Yes (1 week) IPMP verified?: No Allergies/Adverse Reactions: Allergies tramadol HCl [From [facility]] Adverse Reaction (Verified 08/05/17 14:04) Home Medications: Ambulatory Orders Ranitidine HCl [Zantac] 150 mg PO ONCE PRN 07/11/15 Aspirin/Acetaminophen/Caffeine [Excedrin Extra Strength Caplet] 1 each PO DIRECTED PRN 01/16/17 Disposition Discussed With: Patient (Once headache is reduced after treatment; ok Discharge to home with instructions)
[2017-08-05] MEDS ORDERED: TORADOL IM STA (17:38)
[2017-08-05] MEDS ORDERED: MORPHINE 2 MG/ML SYRINGE IM STA (19:05)
[2017-08-05 20:13] VITALS: BP 128/79
== END 2017-08-05 20:14 | disposition home or self-care (01) ==
LOC: ED 12:56
DX: J11.1 Influenza due to unidentified influenza virus with other respiratory manifestations (principal); G43.909 Migraine, unspecified, not intractable, without status migrainosus
CPT/HCPCS: 36415; 80053; 81001; 85025; 87086; 87502; 87651; 96372; 99283

== ENCOUNTER 2017-12-13 17:16 | Emergency (ER) ==
[2017-12-13 17:21] VITALS: BP 102/68; TEMP 98.5; BMI 29.7
--- NOTE | 2017-12-13 21:44 | ED.PDOC ---
General ED Provider: Dr. ZULEMA SAAB Chief Complaint: Toe Pain/Injury Stated Complaint: patient c/o pain and redness to right 5th toe. went to clinic yesterday and was given antibiotics. Time Seen by Physician: 21:14 Mode of Arrival: Walk-In Information Source: Patient Primary Care Provider: SUN[facility]INE [facility] Nursing and Triage Documentation Reviewed and Agree: Yes Reviewed sepsis parameters & appropriate labs ordered?: No System Inflammatory Response Syndrome: Not Applicable Sepsis Protocol: For patient's 13 years and over: Temp is 96.8 and below OR 101 and greater Pulse >90 BPM Resp >20/minute Acutely Altered Mental Status Are patient's symptoms suggestive of a new infection, such as: -Pneumonia -Skin, Soft Tissue -Endocarditis -UTI -Bone, Joint Infection -Implantable Device -Acute Abdominal Infection -Wound Infection -Meningitis -Blood Stream Catheter Infection -Unknown System Inflammatory Response Syndrome: Not Applicable Skin Complaint Exam - Skin/Soft Tissue Complaint/Exam Onset/Duration: 2 days Symptoms Are: Still present Timing: Constant Initial Severity: Moderate Current Severity: Moderate Location: right 5th toe Character: Reports: Swelling, Painful Aggravating: Reports: Touch Associated Signs and Symptoms: Reports: Tenderness. Denies: Fever, Chills, Itching, Drainage, Bruising, Red streaks, Joint swelling Related History: Denies: Prior MRSA/VRE Recent Exposure to Others w/Similar Symptoms: No Skin Findings: Present: Fluctuant mass Joint Tenderness Present: No Differential Diagnoses: Abscess Review of Systems - Review Of Systems Constitutional: Reports: No symptoms Musculoskeletal: Reports: Joint pain, Joint swelling Neurological: Reports: Anxiety Endocrine: Reports: No symptoms All Other Systems: Reviewed and Negative Past Medical History - Past Medical History Previously Healthy: Yes (Documented multiple medical problems) Endocrine: Reports: Dyslipidemia, Unknown Cardiovascular: Reports: None Respiratory: Reports: None Hematological: Reports: None Gastrointestinal: Reports: None Genitourinary: Reports: UTI Neuro/Psych: Reports: Migraine, Depression Musculoskeletal: Reports: Arthritis Cancer: Reports: None Last Menstrual Period: n/a Other Pertinent Past Medical History: neck surgery 02/11/16 - Surgical History General Surgical History: Reports: Hysterectomy, Tubal ligation, (c- sec x3,), Cholecystectomy, Tonsillectomy, Pacemaker, Orthopedic (neck surgery ), Other (Breast lump, lump removed both breasts, ) - Family History Family History: Reports: None - Social History Smoking Status: Never smoker Hx Substance Use: No Alcohol Screening: None Physical Exam - Physical Exam Appearance: Ill-appearing Ill-appearing: Mild Pain Distress: Moderate Neck: Supple Respiratory: Airway patent, Breath sounds clear, Breath sounds equal, Respirations nonlabored Cardiovascular: RRR, Pulses normal, No rub, No murmur Musculoskeletal: Limited ROM (5th Toe ) Skin: Warm, Dry Neurological: Alert, Oriented Psychiatric: Anxious Procedures - Incision and Drainage Site: right pinky toe Instrument Used: Needle I & D Procedure: Yes: Hibiclens Prep Lidocaine Used: No Type of Drainage: Present: Pus Irrigated: No Progress: Tolerated well Critical Care Note - Critical Care Note Total Time (mins): 0 Course - Course Vital Signs: Temp Pulse Resp BP Pulse Ox 12/13/17 17:17 98.5 F 75 20 102/68 97 Departure - Departure Time of Disposition: 21:44 Disposition: HOME SELF-CARE Discharge Problem: Acute paronychia of toe of right foot Instructions: Paronychia (ED) Condition: Stable Pt referred to PMD for follow-up: Yes IPMP verified?: No Additional Instructions: continue warm compress and wound cleansing three times a day. continue Keflex until gone follow up with PCP in 3 days Allergies/Adverse Reactions: Allergies tramadol HCl [From Ultra] Adverse Reaction (Verified 12/13/17 17:21) Home Medications: Ambulatory Orders Ranitidine HCl [Zantac] 150 mg PO ONCE PRN 07/11/15 Aspirin/Acetaminophen/Caffeine [Excedrin Extra Strength Caplet] 1 each PO DIRECTED PRN 01/16/17 Disposition Discussed With: Patient
== END 2017-12-13 21:55 | disposition home or self-care (01) ==
LOC: ED 17:16
DX: L03.031 Cellulitis of right toe (principal)
CPT/HCPCS: 99282

== ENCOUNTER 2018-01-21 11:04 | Outpatient (CLI) | END 2018-01-21 11:05 | disposition home or self-care (01) | LOC: RHC-LAB 11:04 | PROVIDERS: ATTEND Nurse Practitioner Family | DX: Z00.00 Encounter for general adult medical examination without abnormal findings (principal); E78.5 Hyperlipidemia, unspecified | CPT/HCPCS: 36415; 80053; 80061; 84443; 85025 ==

== ENCOUNTER 2018-01-29 07:58 | Outpatient (CLI) | END 2018-01-29 07:59 | disposition home or self-care (01) | LOC: RAD 07:58 | PROVIDERS: ATTEND Nurse Practitioner Family | DX: Z12.31 Encounter for screening mammogram for malignant neoplasm of breast (principal) | CPT/HCPCS: 77067 ==

== ENCOUNTER 2018-02-13 10:18 | Outpatient (CLI) ==
--- NOTE | 2018-02-13 11:18 | US ---
EXAM: Ultrasound venous Doppler right lower extermity HISTORY: Pain in right lower leg COMPARISON: None TECHNIQUE: Venous duplex ultrasound of the right lower extremity was performed using color, cash-sca le, and Doppler flow imaging. FINDINGS: There is normal color flow and compression of the right common femoral, greater saphenous, profunda femoral, femoral, popliteal, peroneal, posterior tibial, and anterior tibial veins without evidence of intraluminal thrombus. IMPRESSION: No right lower extremity deep venous thrombosis.
--- NOTE | 2018-02-13 15:31 | DI ---
EXAM: Right knee four views HISTORY: Pain in right lower leg COMPARISON: None FINDINGS: No fracture or dislocation. Small tricompartmental osteophytes. Lucency about the regulatory compliance officer ior patella likely chondromalacia patella. Mild narrowing patellofemoral compartment. No joint effusi on. IMPERSSION: Mild tricompartmental osteoarthritis. Chondromalacia patella.
--- NOTE | 2018-02-13 15:34 | DI ---
EXAM: Three-view right ankle COMPARISON: None HISTORY: Trauma and pain FINDINGS: There is no acute fracture or dislocation. Alignment is anatomic. There are calcaneal spu rs. The ankle mortise is intact. There is some soft tissue swelling. No unexpected radio-opaque fore ign bodies. IMPRESSION: No acute osseous abnormality.
== END 2018-02-13 10:19 | disposition home or self-care (01) ==
LOC: RAD 10:18
PROVIDERS: ATTEND Emergency Medicine
DX: M79.661 Pain in right lower leg (principal)

== ENCOUNTER 2018-03-16 21:00 | Emergency (ER) ==
[2018-03-16 21:14] VITALS: BP 90/52; TEMP 98.4; BMI 30.1
[2018-03-16] MEDS ORDERED: SODIUM CHLORIDE 0.9%-KCL 20 MEQ 1,000 ML IV STA (21:34)
--- NOTE | 2018-03-16 22:07 | CT ---
EXAM: CT abdomen pelvis without all contrast TECHNIQUE: Helical axial CT of the abdomen and pelvis was performed without contrast with coronal an d sagittal reconstructions. COMPARISON: CT abdomen pelvis from 03/06/2017 HISTORY: Abdominal pain FINDINGS: There is no acute abnormality. Specifically there is no mesenteric inflammation, free air, free fluid or bowel wall thickening or edema or pathologic lymph nodes or obstruction or ileus. The liver, spleen, pancreas,and adrenal glands show no acute abnormality. Lung bases are well-aerate d. There is no hiatal hernia. There has been prior cholecystectomy. There is no biliary or pancreati c ductal dilatation. There are no suspicious renal masses or large cysts and no hydronephrosis. There are no kidney stones . Both ureters demonstrate normal course and caliber. There is no filling defect in the urinary blad lisa. The appendix is not identified however there is no inflammation seen in the right lower quadrant. The re are no inflamed colonic diverticula. There are no abdominal wall hernias. The aorta is normal wit h no aneurysm or calcific atherosclerosis. There are no acute osseous abnormalities. IMPRESSION: 1. No acute abnormality in the abdomen or pelvis. 2. Prior cholecystectomy.
--- NOTE | 2018-03-16 22:22 | ED.PDOC ---
General ED Provider: Dr. SUNSHINE MELTON Chief Complaint: Diarrhea Stated Complaint: Came for the diarrhea, started 3 pm, had 8 times. watery, no abdominal pain. no nausea or vomiting Time Seen by Physician: 22:20 Mode of Arrival: Walk-In Information Source: Patient Primary Care Provider: [facility] Nursing and Triage Documentation Reviewed and Agree: Yes Does patient meet sepsis criteria?: No If yes, has appropriate treatment been initiated?: No System Inflammatory Response Syndrome: Not Applicable Sepsis Protocol: For patient's 13 years and over: Temp is 96.8 and below OR 101 and greater Pulse >90 BPM Resp >20/minute Acutely Altered Mental Status Are patient's symptoms suggestive of a new infection, such as: -Pneumonia -Skin, Soft Tissue -Endocarditis -UTI -Bone, Joint Infection -Implantable Device -Acute Abdominal Infection -Wound Infection -Meningitis -Blood Stream Catheter Infection -Unknown GI Complaint Exam - Vomiting/Diarrhea Complaint/Exam Symptoms Are: Still present Episodes of Diarrhea Over Last 24 Hours: 8 Initial Severity: Moderate Current Severity: Mild Character of Diarrhea: Reports: Watery Aggravating: Reports: Food Alleviating: Reports: None Associated Signs and Symptoms: Denies: Dizziness, Light-headedness, Melena, Hematemesis, Fever, Abdominal pain, Cramping Related History: Reports: Similar episode (1 year ago) Non-GI Risk Factors: Reports: None Surgical Obstruction Risk Factors: Reports: None Related Surgical History: Reports: None Abdominal Findings: Present: None Differential Diagnoses: Viral Gastroenteritis Review of Systems - Review Of Systems Constitutional: Reports: No symptoms Eyes: Reports: No symptoms Ears, Nose, Mouth, Throat: Reports: No symptoms Respiratory: Reports: No symptoms Cardiac: Reports: No symptoms GI: Reports: Diarrhea : Reports: No symptoms Musculoskeletal: Reports: No symptoms Skin: Reports: No symptoms Neurological: Reports: No symptoms Endocrine: Reports: No symptoms Hematologic/Lymphatic: Reports: No symptoms All Other Systems: Reviewed and Negative Past Medical History - Past Medical History Previously Healthy: Yes (Documented multiple medical problems) Endocrine: Reports: Dyslipidemia, Unknown Cardiovascular: Reports: None Respiratory: Reports: None Hematological: Reports: None Gastrointestinal: Reports: None Genitourinary: Reports: UTI Neuro/Psych: Reports: Migraine, Depression Musculoskeletal: Reports: Arthritis Cancer: Reports: None Last Menstrual Period: PT HAS HAD A HYSTERECTOMY Other Pertinent Past Medical History: neck surgery 02/11/16 - Surgical History General Surgical History: Reports: Hysterectomy, Tubal ligation, (c- sec x3,), Cholecystectomy, Tonsillectomy, Pacemaker, Orthopedic (neck surgery ), Other (Breast lump, lump removed both breasts, ) - Family History Family History: Reports: None - Social History Smoking Status: Never smoker Hx Substance Use: No Alcohol Screening: None - Immunizations Tetanus Shot up to Date: Yes Physical Exam - Physical Exam Appearance: Ill-appearing Eyes: BERRY, EOMI, Conjunctiva clear ENT: Ears normal, Nose normal, Oropharynx normal Respiratory: Airway patent, Breath sounds clear, Breath sounds equal, Respirations nonlabored Cardiovascular: RRR, Pulses normal, No rub, No murmur GI/: Soft, Nontender, No masses, No Organomegaly, Bowel sounds hypoactive Musculoskeletal: Normal strength, ROM intact, No edema, No calf tenderness Skin: Warm, Dry, Normal color Neurological: Sensation intact, Motor intact, Reflexes intact, Cranial nerves intact, Alert, Oriented Psychiatric: Affect appropriate, Mood appropriate Interpretation - Radiology Interpretation Radiology Interpretation By: Radiologist Radiology Results: Negative Exam Interpreted: CT Scan Critical Care Note - Critical Care Note Total Time (mins): 30 Course - Course Hematology/Chemistry: 03/16/18 21:30 03/16/18 21:30 Orders, Labs, Meds: Lab Review 03/16/18 03/16/18 21:30 21:30 WBC 5.93 RBC 4.00 L Hgb 12.0 Hct 36.3 L MCV 90.8 MCH 30.0 MCHC 33.1 RDW Coeff of [place] 13.3 Plt Count 181 Immature Gran % (Auto) 0.2 Neut % (Auto) 68.9 Lymph % (Auto) 21.8 [place] % (Auto) 6.4 Eos % (Auto) 2.0 Baso % (Auto) 0.7 Immature Gran # (Auto) 0.0 Neut # (Auto) 4.1 Lymph # (Auto) 1.3 [place] # (Auto) 0.4 Eos # (Auto) 0.1 Baso # (Auto) 0.0 Sodium 141 Potassium 3.8 Chloride 109 H Carbon Dioxide 25 Anion Gap 10.8 BUN 14 Creatinine 0.82 Estimated GFR (MDRD) 71.00 BUN/Creatinine Ratio 17.07 Glucose 89 Calcium 8.8 Total Bilirubin 0.4 AST 14 L ALT 10 L Alkaline Phosphatase 71 Total Protein 6.2 Albumin 3.3 L Globulin 2.9 Albumin/Globulin Ratio 1.14 Orders Category Date Time Status ED IV/MEDIPORT/POWERPORT .ONCE EMERGENCY 03/16/18 21:34 Active CBC W/ AUTO DIFF Stat LAB 03/16/18 21:30 Completed COMPREHENSIVE METABOLIC PANEL Stat LAB 03/16/18 21:30 Completed 0.9 % Sodium Chloride [Saline Flush] MEDS 03/16/18 21:34 Ordered 1 syr IVF PRN PRN Potassium Chloride in 0.9%NaCl [Sodium Chloride 0.9%- MEDS 03/16/18 21:34 Active KCl 20 Meq] 1,000 ml IV 250 mls/hr CT ABDOMEN/PELVIS WO CONTRAST Stat RADS 03/16/18 21:23 Completed Medications Generic Name Dose Route Start Last Admin Trade Name Freq PRN Reason Stop Dose Admin Potassium Chloride/Sodium Chloride 1,000 mls @ 250 mls/hr 03/16/18 21:34 21:49 Sodium Chloride 0.9%-Kcl 20 Meq IV 03/17/18 01:33 250 mls/hr .Q4H STA Administration Sodium Chloride 1 syr 03/16/18 21:34 03/16/18 21:47 Saline Flush IVF 1 syr PRN PRN Administration To flush IV Vital Signs: Temp Pulse Resp BP Pulse Ox 03/16/18 21:01 98.4 F 62 20 90/52 L 96 Departure - Departure Time of Disposition: 22:28 Disposition: HOME SELF-CARE Discharge Problem: Diarrhea Instructions: Dehydration (ED), Gastroenteritis (ED) Condition: Stable Pt referred to PMD for follow-up: Yes IPMP verified?: No Additional Instructions: soft diet Increase hydration f/u in clinic in 2 days Prescriptions: LOPERAMIDE HCl LIQUID [Imodium] 2 mg PO LOOSE STOOL PRN PRN #10 disp.syrin PRN Reason: Diarrhea Allergies/Adverse Reactions: Allergies tramadol HCl [From Ultra] Adverse Reaction (Verified 03/16/18 21:20) ABD PAIN/VOMITING "DEATHLY ILL" Home Medications: Ambulatory Orders Aspirin/Acetaminophen/Caffeine [Excedrin Extra Strength Caplet] 1 each PO DIRECTED PRN 01/16/17 LOPERAMIDE HCl LIQUID [Imodium] 2 mg PO LOOSE STOOL PRN PRN #10 disp.syrin 03/16 Ranitidine HCl [Acid Cloth Dye Range Operator] 150 mg PO BID PRN 03/16/18 Disposition Discussed With: Patient
== END 2018-03-17 02:15 | disposition home or self-care (01) ==
LOC: ED 21:00
DX: R19.7 Diarrhea, unspecified (principal)
CPT/HCPCS: 36415; 80053; 85025; 96360; 96361; 99283

== ENCOUNTER 2018-05-22 10:21 | Outpatient (CLI) | END 2018-05-22 10:22 | disposition home or self-care (01) | LOC: AMBL 10:21 | PROVIDERS: ATTEND Internal Medicine | DX: R10.9 Unspecified abdominal pain (principal); R19.7 Diarrhea, unspecified; R11.0 Nausea; F41.9 Anxiety disorder, unspecified ==

== ENCOUNTER 2018-08-15 11:20 | Outpatient (CLI) | END 2018-08-15 11:21 | disposition home or self-care (01) | LOC: RHC-LAB 11:20 | PROVIDERS: ATTEND Nurse Practitioner Family | DX: G57.93 Unspecified mononeuropathy of bilateral lower limbs (principal); K21.9 Gastro-esophageal reflux disease without esophagitis; E78.5 Hyperlipidemia, unspecified | CPT/HCPCS: 36415; 80053; 80061; 85007; 85025 ==

== ENCOUNTER 2018-08-22 15:54 | Outpatient (CLI) | END 2018-08-22 15:55 | disposition home or self-care (01) | LOC: RHC-LAB 15:54 | PROVIDERS: ATTEND Nurse Practitioner Family | DX: R05 Cough (principal) | CPT/HCPCS: 87502; 87651 ==

== ENCOUNTER 2018-09-08 12:28 | Emergency (ER) ==
[2018-09-08 12:36] VITALS: BP 133/86; TEMP 97.3; BMI 28.5
--- NOTE | 2018-09-08 12:44 | ED.PDOC ---
General ED Provider: Dr. SWETHA BERNAL-ER Chief Complaint: Respiratory Complaint Stated Complaint: i am coughing with fever and body aches---my gd just dx with flu Time Seen by Physician: 12:30 Mode of Arrival: Walk-In Information Source: Patient Exam Limitations: No limitations Primary Care Provider: KEYLA MAGDALENO Nursing and Triage Documentation Reviewed and Agree: Yes Does patient meet sepsis criteria?: No System Inflammatory Response Syndrome: Not Applicable Sepsis Protocol: For patient's 13 years and over: Temp is 96.8 and below OR 101 and greater Pulse >90 BPM Resp >20/minute Acutely Altered Mental Status Are patient's symptoms suggestive of a new infection, such as: -Pneumonia -Skin, Soft Tissue -Endocarditis -UTI -Bone, Joint Infection -Implantable Device -Acute Abdominal Infection -Wound Infection -Meningitis -Blood Stream Catheter Infection -Unknown Respiratory Complaint Exam - Respiratory Complaint/Exam Onset/Duration: 2 days Symptoms Are: Still present Timing: Constant Initial Severity: Mild Current Severity: Mild Location: Chest Character: Reports: Non-productive cough Aggravating: Reports: URI Associated Signs and Symptoms: Reports: Fever, Chills, URI, Nasal congestion. Denies: Rapid breathing, Dyspnea Home Oxygen Use: No Recent Stress Test: No Recent Echo/LV Function: No Current Antibiotic Use: No Current Asthma Medication Use: No Respiratory Distress: None Inadequate Respiratory Effort: No Dysphagia Present: No Stridor Present: No JVD Present: No Accessory Muscle Use: No Retractions: Not Present Diminished Breath Sounds: No Sinus Tenderness: None Grunting Respirations: No Kussmaul Respirations: No Differential Diagnoses: Pneumonia, Bronchitis, URI, Influenza Non-Traumatic Chest Pain Syncope: EKG Performed Review of Systems - Review Of Systems Constitutional: Reports: Chills, Fever Eyes: Reports: No symptoms Ears, Nose, Mouth, Throat: Reports: No symptoms Respiratory: Reports: Cough Cardiac: Reports: No symptoms GI: Reports: No symptoms : Reports: No symptoms Musculoskeletal: Reports: No symptoms Skin: Reports: No symptoms Neurological: Reports: No symptoms Endocrine: Reports: No symptoms Hematologic/Lymphatic: Reports: No symptoms All Other Systems: Reviewed and Negative Past Medical History - Past Medical History Previously Healthy: Yes (Documented multiple medical problems) Endocrine: Reports: Dyslipidemia, Unknown Cardiovascular: Reports: None Respiratory: Reports: None Hematological: Reports: None Gastrointestinal: Reports: None Genitourinary: Reports: UTI Neuro/Psych: Reports: Migraine, Depression Musculoskeletal: Reports: Arthritis Cancer: Reports: None Last Menstrual Period: na Other Pertinent Past Medical History: neck surgery 02/11/16 - Surgical History General Surgical History: Reports: Hysterectomy, Tubal ligation, (c- sec x3,), Cholecystectomy, Tonsillectomy, Pacemaker, Orthopedic (neck surgery ), Other (Breast lump, lump removed both breasts, ) - Family History Family History: Reports: None - Social History Smoking Status: Former smoker Hx Substance Use: No Alcohol Screening: None - Immunizations Tetanus Shot up to Date: No Physical Exam - Physical Exam Appearance: Well-appearing, No pain distress, Well-nourished Pain Distress: Mild Eyes: BERRY, EOMI, Conjunctiva clear ENT: Ears normal, Nose normal, Oropharynx normal Neck: Supple Respiratory: Airway patent, Breath sounds clear, Breath sounds equal, Respirations nonlabored Cardiovascular: RRR, Pulses normal, No rub, No murmur GI/: Soft, Nontender, No masses, Bowel sounds normal, No Organomegaly Musculoskeletal: Normal strength, ROM intact, No edema, No calf tenderness Skin: Warm, Dry, Normal color Neurological: Sensation intact, Motor intact, Reflexes intact, Cranial nerves intact, Alert, Oriented Psychiatric: Affect appropriate Interpretation - Radiology Interpretation Radiology Interpretation By: Radiologist Radiology Results: Negative Exam Interpreted: CXR - EKG Interpretation Time of EKG #1: 13:03 Rate: Normal Rhythm: Sinus Ectopy: None [place]: NL ST Segment: Normal Interpretation: nsr Critical Care Note - Critical Care Note Total Time (mins): 0 Course - Course Hematology/Chemistry: 09/08/18 12:55 09/08/18 12:55 Orders, Labs, Meds: Lab Review 09/08/18 09/08/18 09/08/18 12:44 12:55 12:55 WBC 5.13 RBC 4.55 Hgb 13.7 Hct 41.0 MCV 90.1 MCH 30.1 MCHC 33.4 RDW Coeff of Nixon 13.2 Plt Count 215 Immature Gran % (Auto) 0.2 Neut % (Auto) 69.0 Lymph % (Auto) 25.7 [place] % (Auto) 3.9 Eos % (Auto) 0.8 Baso % (Auto) 0.4 Immature Gran # (Auto) 0.0 Neut # (Auto) 3.5 Lymph # (Auto) 1.3 [place] # (Auto) 0.2 L Eos # (Auto) 0.0 Baso # (Auto) 0.0 Sodium 141.8 Potassium 3.53 Chloride 103.0 Carbon Dioxide 28.9 Anion Gap 13.43 BUN 10.7 Creatinine 0.78 Estimated GFR (MDRD) 75.00 BUN/Creatinine Ratio 13.71 Glucose 91.7 Calcium 9.20 Total Bilirubin 0.53 AST 17.6 ALT 19.7 Alkaline Phosphatase 88.5 Total Creatine Kinase 28.7 L Troponin I < 0.012 Total Protein 7.51 Albumin 4.31 Globulin 3.20 Albumin/Globulin Ratio 1.34 Urine Color Urine Clarity Urine pH Ur Specific [place] Urine Protein Urine Glucose (UA) Urine Ketones Urine Blood Urine Nitrite Urine Bilirubin Urine Urobilinogen Ur Leukocyte Esterase Urine Microscopic WBC Ur Squamous Epith Cells Urine Bacteria Urine Mucus Influ A Molecular Assay Negative by naat Influ B Molecular Assay Negative by naat 09/08/18 12:55 WBC RBC Hgb Hct MCV MCH MCHC RDW Coeff of Nixon Plt Count Immature Gran % (Auto) Neut % (Auto) Lymph % (Auto) [place] % (Auto) Eos % (Auto) Baso % (Auto) Immature Gran # (Auto) Neut # (Auto) Lymph # (Auto) [place] # (Auto) Eos # (Auto) Baso # (Auto) Sodium Potassium Chloride Carbon Dioxide Anion Gap BUN Creatinine Estimated GFR (MDRD) BUN/Creatinine Ratio Glucose Calcium Total Bilirubin AST ALT Alkaline Phosphatase Total Creatine Kinase Troponin I Total Protein Albumin Globulin Albumin/Globulin Ratio Urine Color Yellow Urine Clarity Clear Urine pH 5.5 Ur Specific [place] 1.025 Urine Protein Negative Urine Glucose (UA) Negative Urine Ketones Negative Urine Blood Negative Urine Nitrite Negative Urine Bilirubin Negative Urine Urobilinogen 0.2 Ur Leukocyte Esterase Trace Urine Microscopic WBC 2-5 Ur Squamous Epith Cells 0-2 Urine Bacteria 1+ Urine Mucus 1+ Influ A Molecular Assay Influ B Molecular Assay Orders Category Date Time Status EKG-(ED ONLY) Stat CARDIO 09/08/18 12:39 Completed CBC W/ AUTO DIFF Stat LAB 09/08/18 12:55 Completed COMPREHENSIVE METABOLIC PANEL Stat LAB 09/08/18 12:55 Completed CREATINE KINASE Stat LAB 09/08/18 12:55 Completed FLU A/B MOLECULAR Stat LAB 09/08/18 12:44 Completed MOLECULAR GROUP A STREP Stat LAB 09/08/18 12:44 Completed TROPONIN I Stat LAB 09/08/18 12:55 Completed URINALYSIS C & S IF INDICATED Stat LAB 09/08/18 12:55 Completed URINE CULTURE Stat LAB 09/08/18 12:55 Received CXR [CHEST, 2 VIEWS PA & LAT] Stat RADS 09/08/18 12:41 Completed Vital Signs: Temp Pulse Resp BP Pulse Ox 09/08/18 12:29 97.3 F L 73 16 133/86 95 Departure - Departure Time of Disposition: 13:29 Disposition: HOME SELF-CARE Discharge Problem: Enteritis Instructions: Enteritis (ED) Condition: Good Pt referred to PMD for follow-up: Yes IPMP verified?: No Additional Instructions: zofran 4mg q 4hrs prn nausea #4---sips of clear liquids---tylenol for aches and pain---recheck in 72hrs if not improved Allergies/Adverse Reactions: Allergies tramadol HCl [From [facility]] Adverse Reaction (Verified 03/16/18 21:20) ABD PAIN/VOMITING "DEATHLY ILL" Disposition Discussed With: Patient
--- NOTE | 2018-09-08 12:56 | DI ---
EXAM: Chest two views HISTORY: Cough COMPARISON: 02/25/2017 TECHNIQUE: Two views of the chest were performed FINDINGS: The lungs are clear. There is no pleural effusion or pneumothorax. The heart is normal i n size. The mediastinal contour is normal. There are no acute abnormalities of the bones. Sinusoida l curvature of the thoracolumbar spine. Cervical spinal fusion hardware. IMPRESSION: No acute cardiopulmonary process.
== END 2018-09-08 13:34 | disposition home or self-care (01) ==
LOC: ED 12:28
DX: R06.9 Unspecified abnormalities of breathing (principal); R50.9 Fever, unspecified; R05 Cough; R52 Pain, unspecified; J06.9 Acute upper respiratory infection, unspecified; R09.81 Nasal congestion; K52.9 Noninfective gastroenteritis and colitis, unspecified
CPT/HCPCS: 36415; 80053; 81001; 82550; 84484; 85025; 87086; 87502; 87651; 93005; 93010; 99283

== ENCOUNTER 2018-09-12 11:37 | Outpatient (CLI) | END 2018-09-12 11:38 | disposition home or self-care (01) | LOC: RHC-LAB 11:37 | PROVIDERS: ATTEND Nurse Practitioner Family | DX: R10.9 Unspecified abdominal pain (principal); R53.83 Other fatigue; R19.7 Diarrhea, unspecified | CPT/HCPCS: 36415; 80053; 82150; 82306; 82607; 83690 ==

== ENCOUNTER 2019-08-18 14:25 | Observation (INO) ==
[2019-08-18] MEDS ORDERED: ASPIRIN CHEWABLE PO STA (14:39)
[2019-08-18] MEDS ORDERED: SODIUM CHLORIDE 1,000 ML IV STA (14:39)
[2019-08-18] MEDS ORDERED: PROTONIX PO STA (14:39)
[2019-08-18] MEDS ORDERED: ZOFRAN 4 MG/2 ML IVP STA (14:39)
[2019-08-18] MEDS ORDERED: TYLENOL PO STA (14:39)
--- NOTE | 2019-08-18 14:46 | ED.PDOC ---
General ED Provider: Dr. INGRIS NYE MD Chief Complaint: Chest Pain Stated Complaint: chest pain Time Seen by Physician: 16:27 Mode of Arrival: Wheelchair Information Source: Patient Primary Care Provider: KEYLA MAGDALENO APRN Nursing and Triage Documentation Reviewed and Agree: Yes Does patient meet sepsis criteria?: No System Inflammatory Response Syndrome: Not Applicable Sepsis Protocol: For patient's 13 years and over: Temp is 96.8 and below OR 101 and greater Pulse >90 BPM Resp >20/minute Acutely Altered Mental Status Are patient's symptoms suggestive of a new infection, such as: -Pneumonia -Skin, Soft Tissue -Endocarditis -UTI -Bone, Joint Infection -Implantable Device -Acute Abdominal Infection -Wound Infection -Meningitis -Blood Stream Catheter Infection -Unknown Cardiovascular Complaint Exam Chest Pain Complaint/Exam Onset: Sudden Duration: one hour constant anterior chest pain burning , no injury, no hx [place] or dm Symptoms Are: Still present Timing: Constant Initial Severity: Mild Current Severity: Mild Location: Reports Midsternal Pain Radiates: Reports None Character: Reports Burning Aggravating: Reports None Alleviating: Reports None Associated Signs and Symptoms: Denies Dizziness Review of Systems Review Of Systems Constitutional: Denies Fever Eyes: Denies Vision change Ears, Nose, Mouth, Throat: Denies Throat pain Respiratory: Denies Cough Cardiac: Reports Chest pain GI: Denies Abdominal pain Musculoskeletal: Denies Back pain Skin: Denies Rash Neurological: Reports No symptoms; Denies Headache All Other Systems: Other [facility] Medical History Rheumatic fever Family History BROTHER No problems noted. Other Lung cancer Social History Smoking and tobacco status: Former smoker Female Reproductive History Menstrual Age of Menarche: 15 Hx Hysterectomy: No Hx Tubal Ligation: Yes Date of menopause: 08/22/06 Physical Exam Physical Exam Appearance: Reports Well-appearing Ill-appearing: None Pain Distress: Mild Eyes: Reports BERRY and EOMI ENT: Reports Oropharynx normal Neck: Supple Respiratory: Reports Airway patent and Breath sounds equal Cardiovascular: Reports RRR GI/: Reports Soft; Denies Tender Musculoskeletal: Reports Normal strength Skin: Reports Warm and Dry Neurological: Reports Sensation intact and Motor intact Psychiatric: Reports Affect appropriate Interpretation Radiology Interpretation Radiology Interpretation By: Radiologist Radiology Results: No acute changes Exam Interpreted: CXR EKG Interpretation Time of EKG #1: 16:21 Rate: Normal Rhythm: Sinus ST Segment: Normal Re-Evaluation Re-Evaluation Time of Re-Evaluation: 16:21 Status: Improved Vital Signs Stable: Yes Appearance: NAD Lungs: Clear Skin: Warm and Dry Neuro: Alert and Oriented X3 CV: RRR Physician Notification Case Discussed Physician Notified: katerin simental Time of Notification: 16:22 Admit/Transition Orders Entered by ED Provider: Yes Follow-up With: admit discussed Critical Care Note Critical Care Note Total Time (mins): 0 Course Course Hematology/Chemistry: 08/18/19 14:55 08/18/19 14:55 Orders, Labs, Meds: Lab Review 08/18/19 08/18/19 08/18/19 14:55 14:55 14:55 WBC 8.18 RBC 4.29 Hgb 13.1 Hct 38.4 MCV 89.5 MCH 30.5 MCHC 34.1 RDW Coeff of Nixon 13.2 Plt Count 242 Immature Gran % (Auto) 0.4 Neut % (Auto) 78.7 H Lymph % (Auto) 16.1 [place] % (Auto) 3.7 Eos % (Auto) 0.5 Baso % (Auto) 0.6 Immature Gran # (Auto) 0.0 Neut # (Auto) 6.4 Lymph # (Auto) 1.3 [place] # (Auto) 0.3 L Eos # (Auto) 0.0 Baso # (Auto) 0.1 D-Dimer (Manual) 407.66 Sodium 137.9 Potassium 3.56 Chloride 109.3 H Carbon Dioxide 19.3 L Anion Gap 12.86 BUN 11.0 Creatinine 0.59 L Estimated GFR (MDRD) 103.00 BUN/Creatinine Ratio 18.64 Glucose 116.8 H Calcium 9.39 Total Bilirubin 0.55 AST 22.9 ALT 13.9 Alkaline Phosphatase 86.2 Troponin I < 0.012 Total Protein 7.10 Albumin 4.27 Globulin 2.83 Albumin/Globulin Ratio 1.50 Orders Category Date Time Status ADMIT OBSERVATION [PLACE PATIENT OBSERVATION] .TO ADMISSION 08/18/19 16:17 Active MEDSURG (MONITORED BED) EKG-(ED ONLY) Stat CARDIO 08/18/19 14:39 Completed EKG-(IP & OP ONLY) DAILY CARDIO 08/19/19 06:00 Ordered EKG-(IP & OP ONLY) DAILY CARDIO 08/20/19 06:00 Ordered ACTIVITY .BR with BRP CARE 08/18/19 16:24 Ordered TELEMETRY MONITORING TELE CARE 08/18/19 16:18 Active VITAL SIGNS Q4HR CARE 08/18/19 16:24 Ordered CARDIAC DIET DIETARY 08/18/19 Dinner Ordered CBC W/ AUTO DIFF DAILY@0600 LAB 08/19/19 06:00 Ordered CBC W/ AUTO DIFF DAILY@0600 LAB 08/20/19 06:00 Ordered CBC W/ AUTO DIFF Stat LAB 08/18/19 14:55 Completed COMPREHENSIVE METABOLIC PANEL DAILY@0600 LAB 08/19/19 06:00 Ordered COMPREHENSIVE METABOLIC PANEL DAILY@0600 LAB 08/20/19 06:00 Ordered COMPREHENSIVE METABOLIC PANEL Stat LAB 08/18/19 14:55 Completed D-DIMER Stat LAB 08/18/19 14:55 Completed TROPONIN I Q8H LAB 08/18/19 22:30 Ordered TROPONIN I Q8H LAB 08/19/19 06:30 Ordered TROPONIN I Stat LAB 08/18/19 14:55 Completed Acetaminophen [Tylenol] MEDS 08/18/19 14:39 Discontinued 650 mg PO ONCE STA Aspirin [Aspirin Chewable] MEDS 08/18/19 14:39 Discontinued 324 mg PO ONCE STA Ondansetron HCl/Pf [Zofran 4 mg/2 ml] MEDS 08/18/19 14:39 Discontinued 4 mg IVP ONCE STA Pantoprazole Sodium [Protonix] MEDS 08/18/19 14:39 Discontinued 40 mg PO ONCE STA Sodium Chloride 0.9% [Sodium Chloride] 1,000 ml MEDS 08/18/19 16:30 Ordered IV 75 mls/hr Sodium Chloride 0.9% [Sodium Chloride] 1,000 ml MEDS 08/18/19 14:39 Discontinued IV BOLUS RESUSCITATION STATUS Routine OTHERS 08/18/19 16:24 Ordered CHEST, 2 VIEWS PA & LAT Stat RADS 08/18/19 14:39 Completed Medications Generic Name Dose Route Start Last Admin Trade Name Freq PRN Reason Stop Dose Admin Sodium Chloride 1,000 mls @ 75 mls/hr 08/18/19 16:30 Sodium Chloride IV .[id number] Discontinued Medications Generic Name Dose Route Start Last Admin Trade Name Freq PRN Reason Stop Dose Admin Acetaminophen 650 mg 08/18/19 14:39 08/18/19 15:15 Tylenol PO 08/18/19 14:40 650 mg ONCE STA Administration Aspirin 324 mg 08/18/19 14:39 08/18/19 15:13 Aspirin Chewable PO 08/18/19 14:40 324 mg ONCE STA Administration Sodium Chloride 1,000 mls @ 1,000 mls/hr 08/18/19 14:39 08/18/19 15:10 Sodium Chloride IV 08/18/19 15:38 1,000 mls/hr BOLUS STA Administration Ondansetron HCl 4 mg 08/18/19 14:39 08/18/19 14:55 Zofran 4 Mg/2 Ml IVP 08/18/19 14:40 4 mg ONCE STA Administration Pantoprazole Sodium 40 mg 08/18/19 14:39 08/18/19 15:14 Protonix PO 08/18/19 14:40 40 mg ONCE STA Administration Vital Signs: Temp Pulse Resp BP Pulse Ox 08/18/19 14:26 98.5 F 74 25 H 144/77 H 100 EDU Risk Score EDU Risk Score: Risk Score Odds of by 30D 0 0.1 (0.1-0.2) 1 0.3 (0.2-0.3) 2 0.4 (0.3-0.5) 3 0.7 (0.6-0.9) 4 1.2 (1.0-1.5) 5 2.2 (1.9-2.6) 6 3.0 (2.5-3.6) 7 4.8 (3.8-6.1)
[2019-08-18 14:59] LABS: HEMATOCRIT 38.4 % (37.0-47.0)
--- NOTE | 2019-08-18 15:25 | DI ---
EXAM: CHEST FRONTAL AND LATERAL VIEWS HISTORY: Chest pain. COMPARISON: Compared to 09/08/2018. FINDINGS: Heart size and mediastinal contour remain within normal limits. No acute infiltrates. Normal vascularity with no pleural fluid or pneumothorax. Scoliosis is noted, stable. Hardware of the lower cervical spine. The bony thorax has no acute finding. IMPRESSION: No acute cardiopulmonary process.
[2019-08-18] MEDS ORDERED: SODIUM CHLORIDE 1,000 ML IV SCH ×2 (16:30→20:14)
[2019-08-18] MEDS ORDERED: NITROSTAT SL PRN (17:26)
[2019-08-18] MEDS ORDERED: GI COCKTAIL PO PRN (17:26)
[2019-08-18 17:40] VITALS: BMI 26.9
[2019-08-18] MEDS ORDERED: IMITREX SUBCUT STA ×2 (17:41→20:05)
[2019-08-18] MEDS ORDERED: ZOFRAN 4 MG/2 ML IVP PRN (17:44)
--- NOTE | 2019-08-18 17:54 | PCM ---
Chief Complaint Chief Complaint: "chest pain" History of Present Illness History of Present Illness: Ava Dorantes is a 64 yo female patient of Carmen Johnson APRN, w/ history frequent ER visits mainly for headaches who presented to [facility] ([facility]) ER 08/18/2019 14:26 w/ c/os new sudden onset 1 hr. 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 Patient notes that she awoke this AM w/ her usual constant "throbbing/pounding" migraine headache located across her head at her eyebrows rated 9-10/10 that progressed 2 hrs. 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 She notes photosensitivity, noise sensitivity, Home treatment for chest pain was none, but calling someone to bring her to the ER. Prior to that she took Tylenol ES 2 caplets at 07:30 and 11:30 w/ absolutely no headache relief. 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 She has 3 of her grandchildren living in her home w/ 2 great grandchildren. Notes she has lots of stress in her life at times, but offers no further insight at this time. ER observation includes stable VS (see chart below); EKG=NSR w/o ST changes or ectopy, rate 70's; D-Dimer 407.66 Normal; CMP essentially WNL; CBC WNL except Neut% 78.7; CXR=No acute cardiopulmonary process. Patient was admitted to telemetry bed for OBS Acute Chest Pain. She denies CP upon arrival to the medical unit and feels her headache and nausea are her worst symptoms at present. Review of Systems Constitutional: Denies fever, chills, weakness, sweats, fatigue and loss of appetite Eyes: Reports photophobia; Denies blurred vision, double-vision, discharge, itching, pain and redness Ears: Denies pain, bleeding, drainage, ringing and hearing loss Nose: Denies bleeding, congestion and discharge Throat: Denies pain, swelling and voice change Mouth: Denies bleeding and swelling Respiratory: Denies cough, shortness of air, wheeze, hemoptysis and pain with breathing Cardiovascular: Denies chest pain, left arm pain, diaphoresis, orthopnea, edema, palpitations and syncope Gastrointestinal: Reports nausea and vomiting; Denies abdominal pain, diarrhea, melena, hematemesis, hematochezia and constipation (Last BM 08/17/2019 was normal.) Genitourinary: Denies dysuria, hematuria, frequency, incontinence and flank pain Neurological: Reports headache (See HPI; has Migraine headaches once every 3-4 wks. ); Denies dizziness, seizure, numbness, weakness, speech difficulty, problems with walking, tremor and fainting Musculoskeletal: Reports pain (pains in bilateral calves and feet every night--can't tolerate medications given (not sure of med name)); Denies swelling in joints Skin: Denies rash, pruritus, lacerations, wounds and bruising Hematology: Reports easy bruising; Denies easy bleeding and swollen glands Endocrine: Denies weight changes, cold intolerance, heat intolerance, excessive thirst, excessive hunger and polyuria Psychiatric: Reports sleeplessness (sleeps 2-3 hrs per HS.); Denies depression, anxiety, hopelessness, suicidal and hallucinations Habits: Reports tobacco use (<1 PPD for 6-9 mos in HS); Denies substance use and alcohol use Allergies Allergies Allergy/AdvReac Type Severity Reaction Status Date / Time tramadol HCl [From Ultram] AdvReac ABD Verified 08/18/19 14:36 PAIN/VOMITING "DEATHLY ILL" [facility] Medical History (Updated 08/18/19 @ 19:25 by BRIGIDO CASTELLANO) Headache (Resolved) Rheumatic fever Right shoulder pain (Inactive) Surgical History (Updated 08/18/19 @ 19:46 by BRIGIDO CASTELLANO) History of breast biopsy History of dental surgery History of tubal ligation S/P cervical spinal fusion Status post cholecystectomy Status post hysterectomy Status post tonsillectomy and adenoidectomy Family History BROTHER Lung cancer Mother CHF (congestive heart failure) Alcohol abuse Heart attack Father Stroke SISTER Alcohol abuse CHF (congestive heart failure) Social History Smoking and tobacco status: Former smoker Tobacco: How many years used: 1 Smoking status start date: 03/23/70 Smoking status stop date: 11/05/69 Alcohol intake: never Substance use type: does not use Yenifer/jainism: TENRIISM Special yenifer needs: No Agree to transfusion: Yes Adopted: No Caregiver/support person: No Household members: family Housing: house Marital status: D Lives independently: Yes Number of children: 3 Number of grandchildren: 12 Highest education level completed: 12th grade, no diploma Financial difficulty paying for basics: not very hard Current occupational status: employed 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 [employer] Medications Medications: Medications Generic Name Dose Route Start Last Admin Trade Name Freq PRN Reason Stop Dose Admin Al Hydroxide/Mg Hydroxide 30 ml 08/18/19 17:26 Gi Cocktail PO QID PRN Chest Pain Aspirin 81 mg 08/19/19 08:00 Aspirin Ec PO DAILYWM VIKI Enoxaparin Sodium 40 mg 08/18/19 17:30 Lovenox SUBCUT DAILY VIKI Sodium Chloride 1,000 mls @ 75 mls/hr 08/18/19 16:30 Sodium Chloride IV .[id number] [facility] Nitroglycerin 0.4 mg 08/18/19 17:26 Nitrostat SL Q5MIN X 3 DOSES PRN Chest Pain Omeprazole 40 mg 08/19/19 08:00 Prilosec PO QDAY VIKI Ondansetron HCl 4 mg 08/18/19 17:44 Zofran 4 Mg/2 Ml IVP Q6H PRN Nausea / Vomiting Sumatriptan Succinate 6 mg 08/18/19 17:41 Imitrex SUBCUT 08/18/19 17:42 ONCE STA Body Composition Height: 5 ft 6 in Weight: 166 lb 7.184 oz Body Mass Index (BMI): 26.9 Vital Signs Temperature: 97.7 F Pulse Rate: 72 Respiratory Rate: 16 Blood Pressure: 144/77 O2 Sat by Pulse Oximetry: 99 Physical Examination Appearance: Reports Well-appearing, Well-nourished and Obese (Mildly obese; BMI 26.9) Ill-appearing: Moderate Pain Distress: Moderate Eyes: Reports BERRY, EOMI and Conjunctiva clear; Denies Conjunctiva inflammed, Conjunctiva pale, Right pupil size and Left pupil size ENT: Reports Ears normal, Nose normal and Oropharynx normal; Denies TMs Occluded, Rhinorrhea, Epistaxis, Erythema, Exudate and Dry mucosa Neck: Supple Respiratory: Reports Airway patent, Breath sounds clear, Breath sounds equal and Respirations nonlabored; Denies Breath sounds diminished, Crackles, Rhonchi, Wheezes and Retractions Cardiovascular: Reports RRR, Pulses normal, No rub and No murmur; Denies Irregular rhythm, Tachycardia, Bradycardia, Abnormal pulses and Murmur GI/: Reports Soft, Nontender, No masses, Bowel sounds normal and No Organomegaly; Denies Hepatomegaly and Splenomegaly Musculoskeletal: Reports Normal strength, ROM intact, No edema and No calf tenderness Skin: Reports Warm, Dry and Normal color; Denies Diaphoretic and Cyanotic Neurological: Reports Sensation intact, Motor intact (Rhomberg negative.), Reflexes intact, Cranial nerves intact, Alert and Oriented Psychiatric: Reports Affect appropriate and Mood appropriate; Denies Anxious and Depressed Lab/Tests/Diagnostic Imaging Lab/Tests/Diagnostic Imaging: Lab Review 08/18/19 08/18/19 08/18/19 14:55 14:55 14:55 WBC 8.18 RBC 4.29 Hgb 13.1 Hct 38.4 MCV 89.5 MCH 30.5 MCHC 34.1 RDW Coeff of Nixon 13.2 Plt Count 242 Immature Gran % (Auto) 0.4 Neut % (Auto) 78.7 H Lymph % (Auto) 16.1 [place] % (Auto) 3.7 Eos % (Auto) 0.5 Baso % (Auto) 0.6 Immature Gran # (Auto) 0.0 Neut # (Auto) 6.4 Lymph # (Auto) 1.3 [place] # (Auto) 0.3 L Eos # (Auto) 0.0 Baso # (Auto) 0.1 D-Dimer (Manual) 407.66 Sodium 137.9 Potassium 3.56 Chloride 109.3 H Carbon Dioxide 19.3 L Anion Gap 12.86 BUN 11.0 Creatinine 0.59 L Estimated GFR (MDRD) 103.00 BUN/Creatinine Ratio 18.64 Glucose 116.8 H Calcium 9.39 Total Bilirubin 0.55 AST 22.9 ALT 13.9 Alkaline Phosphatase 86.2 Troponin I < 0.012 Total Protein 7.10 Albumin 4.27 Globulin 2.83 Albumin/Globulin Ratio 1.50 08/18/2019 CXR PA & Lat Impression: No acute cardiopulmonary process. Orders Category Date Time Status ADMIT OBSERVATION [PLACE PATIENT OBSERVATION] .TO ADMISSION 08/18/19 16:17 Active MEDSURG (MONITORED BED) EKG-(ED ONLY) Stat CARDIO 08/18/19 14:39 Completed EKG-(IP & OP ONLY) DAILY CARDIO 08/19/19 06:00 Stop Req EKG-(IP & OP ONLY) DAILY CARDIO 08/20/19 06:00 Stop Req EKG-(IP & OP ONLY) Stat CARDIO 08/18/19 17:26 Ordered Notify RT of Treatment ONCE CARE 08/18/19 17:26 Active TELEMETRY MONITORING TELE CARE 08/18/19 16:18 Active VTE PREVENTION .SCD 24 Hours CARE 08/18/19 12:09 Active ADVANCE DIET TOLERATED DIETARY 08/18/19 Dinner Ordered CBC W/ AUTO DIFF DAILY@0600 LAB 08/19/19 06:00 Ordered CBC W/ AUTO DIFF DAILY@0600 LAB 08/20/19 06:00 Ordered CBC W/ AUTO DIFF Stat LAB 08/18/19 14:55 Completed COMPREHENSIVE METABOLIC PANEL DAILY@0600 LAB 08/19/19 06:00 Ordered COMPREHENSIVE METABOLIC PANEL DAILY@0600 LAB 08/20/19 06:00 Ordered COMPREHENSIVE METABOLIC PANEL Stat LAB 08/18/19 14:55 Completed D-DIMER Stat LAB 08/18/19 14:55 Completed TROPONIN I Q8H LAB 08/18/19 22:30 Ordered TROPONIN I Q8H LAB 08/19/19 06:30 Ordered TROPONIN I Stat LAB 08/18/19 14:55 Completed Acetaminophen [Tylenol] MEDS 08/18/19 14:39 Discontinued 650 mg PO ONCE STA Aspirin [Aspirin Chewable] MEDS 08/18/19 14:39 Discontinued 324 mg PO ONCE STA Aspirin [Aspirin EC] MEDS 08/19/19 08:00 Ordered 81 mg PO DAILYWM Enoxaparin Sodium [Lovenox] MEDS 08/18/19 17:30 Active 40 mg SUBCUT DAILY Mag-Al Plus//Lidocaine [Gi Cocktail] MEDS 08/18/19 17:26 Ordered 30 ml PO QID PRN Nitroglycerin [Nitrostat] MEDS 08/18/19 17:26 Ordered 0.4 mg SL Q5MIN X 3 DOSES PRN Omeprazole [Prilosec] MEDS 08/19/19 08:00 Ordered 40 mg PO QDAY Ondansetron HCl/Pf [Zofran 4 mg/2 ml] MEDS 08/18/19 14:39 Discontinued 4 mg IVP ONCE STA Ondansetron HCl/Pf [Zofran 4 mg/2 ml] MEDS 08/18/19 17:44 Ordered 4 mg IVP Q6H PRN Pantoprazole Sodium [Protonix] MEDS 08/18/19 14:39 Discontinued 40 mg PO ONCE STA Sodium Chloride 0.9% [Sodium Chloride] 1,000 ml MEDS 08/18/19 16:30 Active IV 75 mls/hr Sodium Chloride 0.9% [Sodium Chloride] 1,000 ml MEDS 08/18/19 14:39 Discontinued IV BOLUS Sumatriptan Succinate [Imitrex] MEDS 08/18/19 17:41 Stat 6 mg SUBCUT ONCE STA RESUSCITATION STATUS Routine OTHERS 08/18/19 16:24 Ordered RESUSCITATION STATUS Routine OTHERS 08/18/19 17:39 Ordered CHEST, 2 VIEWS PA & LAT Stat RADS 08/18/19 14:39 Completed Medications Generic Name Dose Route Start Last Admin Trade Name Freq PRN Reason Stop Dose Admin Al Hydroxide/Mg Hydroxide 30 ml 08/18/19 17:26 Gi Cocktail PO QID PRN Chest Pain Aspirin 81 mg 08/19/19 08:00 Aspirin Ec PO DAILYWM VIKI Enoxaparin Sodium 40 mg 08/18/19 17:30 Lovenox SUBCUT DAILY VIKI Sodium Chloride 1,000 mls @ 75 mls/hr 08/18/19 16:30 Sodium Chloride IV .[id number] Nitroglycerin 0.4 mg 08/18/19 17:26 Nitrostat SL Q5MIN X 3 DOSES PRN Chest Pain Omeprazole 40 mg 08/19/19 08:00 Prilosec PO QDAY VIKI Ondansetron HCl 4 mg 08/18/19 17:44 Zofran 4 Mg/2 Ml IVP Q6H PRN Nausea / Vomiting Sumatriptan Succinate 6 mg 08/18/19 17:41 Imitrex SUBCUT 08/18/19 17:42 ONCE STA Discontinued Medications Generic Name Dose Route Start Last Admin Trade Name Freq PRN Reason Stop Dose Admin Acetaminophen 650 mg 08/18/19 14:39 08/18/19 15:15 Tylenol PO 08/18/19 14:40 650 mg ONCE STA Administration Aspirin 324 mg 08/18/19 14:39 08/18/19 15:13 Aspirin Chewable PO 08/18/19 14:40 324 mg ONCE STA Administration Sodium Chloride 1,000 mls @ 1,000 mls/hr 08/18/19 14:39 08/18/19 15:10 Sodium Chloride IV 08/18/19 15:38 1,000 mls/hr BOLUS STA Administration Ondansetron HCl 4 mg 08/18/19 14:39 08/18/19 14:55 Zofran 4 Mg/2 Ml IVP 08/18/19 14:40 4 mg ONCE STA Administration Pantoprazole Sodium 40 mg 08/18/19 14:39 08/18/19 15:14 Protonix PO 08/18/19 14:40 40 mg ONCE STA Administration Assessment (1) Acute chest pain: Status: Acute Code(s): R07.9 - Chest pain, unspecified SNOMED Code(s): 782910654 (2) Migraine headache: Status: Acute Code(s): G43.909 - Migraine, unspecified, not intractable, without status migrainosus SNOMED Code(s): 12074855 Qualifiers: Intractability: intractable Migraine type: unspecified Status migrainosus presence: without status migrainosus Qualified Code(s): G43.919 - Migraine, unspecified, intractable, without status migrainosus (3) Nausea and vomiting in adult patient: Status: Acute Code(s): R11.0 - Nausea SNOMED Code(s): 64676859 Plan Plan: Acute Chest Pain, unknown etiology, stable w/ resolution at present. Consider GI cause Gastritis vs PUD, Secondary effect of forceful vomiting/Migraine. Telemetry. GI cocktail prn. Nitro SL prn. Hold MS for now as may aggravate Migraine. STAT EKG w/ chest pain and have ER MD evaluate EKG during night if needed. Then call PLATFORM ENGINEER w/ report and assessment for further treatment if needed. Monitor troponins and labs. VS Q 1 hr X4 and then Q4 hr if stable. Migraine Headache, Unchanged/Unrelieved Rated 10/10 on admission to floor w/ Sumatriptan 6mg subQ STAT on admission to floor and repeat in 1 hour if not relieved. Monitor patient w/ VS Q 1 hr X 4 then Q 4 hrs if stable. Migraine precautions- dark room, quiet, decrease stimulation, limit visitors if possible to eliminate stimuli. On d/c will need to f-u w/ Carmen Crumble, EMT I/85 for other migraine control meds and possible Imitrex SQ. N/V secondary to Migraine, worsening-- Zofran 4mg IVP Q 6 hrs prn n/v; NPO except for meds and ice chips until N/V controlled; NS IV 125ml/hr X 1000ml then decrease to 83ml/hr.; Advance diet as maikel in AM starting w/ clear liquids if N/V controlled. Disposition Pt. Admission time 60 minutes w/ nurse huddle, After hours pharmacist consult, data collection, and patient/family education. Pt. stable @ 20:01 w/ headache rated 0-1/10 at present. Feeling much better w/ likely d/c early afternoon tomorrow if no further events. [facility] Medical History (Updated 08/18/19 @ 19:25 by BRIGIDO CASTELLANO) Headache (Resolved) Rheumatic fever Right shoulder pain (Inactive) Family History BROTHER Lung cancer Mother CHF (congestive heart failure) Alcohol abuse Heart attack Father Stroke SISTER Alcohol abuse CHF (congestive heart failure) Social History Smoking and tobacco status: Former smoker Tobacco: How many years used: 1 Smoking status start date: 03/23/70 Smoking status stop date: 11/05/69 Alcohol intake: never Substance use type: does not use Yenifer/jainism: TENRIISM Special yenifer needs: No Agree to transfusion: Yes Adopted: No Caregiver/support person: No Household members: family Housing: house Marital status: D Lives independently: Yes Number of children: 3 Number of grandchildren: 12 Highest education level completed: 12th grade, no diploma Financial difficulty paying for basics: not very hard Current occupational status: employed 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
[2019-08-18] MEDS: LOVENOX SUBCUT SCH (18:17)
[2019-08-19] MEDS ORDERED: SODIUM CHLORIDE 1,000 ML IV SCH (01:30)
[2019-08-19 06:36] LABS: HEMATOCRIT 33.5 % (37.0-47.0)
[2019-08-19] MEDS ORDERED: K-DUR PO STA (07:11)
[2019-08-19] MEDS ORDERED: FLUZONE HIGH-DOSE 2019-20 SYR IM ONE (07:16)
[2019-08-19] MEDS ORDERED: ASPIRIN EC PO SCH (08:00)
--- NOTE | 2019-08-19 08:00 | PCM.DC ---
Final Diagnosis: Acute Chest Pain, resolved Migraine headache, resolved (1) Acute chest pain: Status: Acute Code(s): R07.9 - Chest pain, unspecified SNOMED Code(s): 534601280 (2) Migraine headache: Status: Acute Code(s): G43.909 - Migraine, unspecified, not intractable, without status migrainosus SNOMED Code(s): 30535768 Qualifiers: Intractability: intractable Migraine type: unspecified Status migrainosus presence: without status migrainosus Qualified Code(s): G43.919 - Migraine, unspecified, intractable, without status migrainosus (3) Nausea and vomiting in adult patient: Status: Acute Code(s): R11.0 - Nausea SNOMED Code(s): 53473419 (4) GERD (gastroesophageal reflux disease): Status: Acute Code(s): K21.9 - Gastro-esophageal reflux disease without esophagitis SNOMED Code(s): 689565114 Qualifiers: Esophagitis presence: esophagitis presence not specified Qualified Code(s): K21.9 - Gastro-esophageal reflux disease without esophagitis Reason for Hospitalization: Observation for Acute Chest Pain in 64 yo female. Prognosis at Discharge: Good w/ CP resolved negative D-Dimer, Serial Troponins negative, CXR negative, and physical exam finding negative. Condition at Discharge: Stable w/ CP resolved. Medications at Discharge: Ambulatory Orders Medication Instructions Recorded omeprazole 40 mg capsule,delayed 40 mg PO QDAY #30 cap 05/09/19 release Imitrex Stat Inj. 6mg/0.5ml Syringe Kit ([id number]) Simg/0.5 ml Stat Migraine headache & repeat after 1 hr if headache not completely relieved or 2nd dose if headache recurs. No more than 12 mg in 24 hrs. NRF Name Brand Only via [facility] Imitrex refill cartridges #2 ([id number]) as directed. NRF Name Brand Only via [facility] Patient received HI-Dose Influenza vaccine prior to discharge. Lab/Diagnostics: Laboratory Results WBC 6.90 K/ul (4.6-10.2) 08/19/19 06:30 RBC 3.65 10^6/ul (4.20-5.40) L 08/19/19 06:30 Hgb 11.3 g/dl (12.0-16.0) L 08/19/19 06:30 Hct 33.5 % (37.0-47.0) L 08/19/19 06:30 MCV 91.8 fl (81.0-99.0) 08/19/19 06:30 MCH 31.0 pg (27.0-31.0) 08/19/19 06:30 MCHC 33.7 (31.8-35.4) 08/19/19 06:30 RDW Coeff of Nixon 13.3 % (11.6-14.8) 08/19/19 06:30 Plt Count 186 10^3/uL (140-440) 08/19/19 06:30 Immature Gran % (Auto) 0.1 % (0.0-5.0) 08/19/19 06: Neut % (Auto) 73.1 % (42.2-75.2) 08/19/19 06:30 Lymph % (Auto) 19.7 (10.0-50.0) 08/19/19 06:30 Garrett % (Auto) 5.7 (0-10) 08/19/19 06:30 Eos % (Auto) 1.0 % (0.0-7.0) 08/19/19 06:30 Baso % (Auto) 0.4 % (0.0-3.0) 08/19/19 06:30 Immature Gran # (Auto) 0.0 (0.0-1.0) 08/19/19 06:30 Neut # (Auto) 5.0 K/ul (2.0-6.9) 08/19/19 06:30 Lymph # (Auto) 1.4 K/uL (0.60-3.4) 08/19/19 06:30 Garrett # (Auto) 0.4 K/uL (0.4-2.0) 08/19/19 06:30 Eos # (Auto) 0.1 K/ul (0.0-0.7) 08/19/19 06:30 Baso # (Auto) 0.0 K/uL (0-0.2) 08/19/19 06:30 D-Dimer (Manual) 407.66 ng/mL (<500) 08/18/19 14:55 Sodium 140.3 mmol/L (134.5-145) 08/19/19 06:30 Potassium 3.38 mmol/L (3.5-5.1) L 08/19/19 06:30 Chloride 112.3 mmol/L (98-107) H 08/19/19 06:30 Carbon Dioxide 24.3 mmol/L (22-30.0) 08/19/19 06:30 Anion Gap 7.08 08/19/19 06:30 BUN 8.0 mg/dL (7-17) 08/19/19 06:30 Creatinine 0.58 mg/dL (0.60-1.30) L 08/19/19 06:30 Estimated GFR (MDRD) 105.00 mL/min 08/19/19 06:30 BUN/Creatinine Ratio 13.79 08/19/19 06:30 Glucose 98.7 mg/dL (74-106) 08/19/19 06:30 Calcium 8.24 mg/dL (8.4-10.2) L 08/19/19 06:30 Total Bilirubin 0.38 mg/dL (0.2-1.3) 08/19/19 06:30 AST 15.9 U/L (14-36) 08/19/19 06:30 ALT 11.6 U/L (0-35) 08/19/19 06:30 Alkaline Phosphatase 63.8 U/L (53-141) 08/19/19 06:30 Troponin I < 0.012 ng/ml (0.0000-0.120) 08/19/19 06:30 Total Protein 5.87 g/dL (6.3-8.2) L 08/19/19 06:30 Albumin 3.40 g/dL (3.5-5.0) L 08/19/19 06:30 Globulin 2.47 08/19/19 06:30 Albumin/Globulin Ratio 1.37 08/19/19 06:30 Patient: AVA DORANTES LAcct:[id number] Record: [id number] : 1955Loc: EDRoom/Bed: Age/Sex: 64 / FADM Status: REG ER Date of Service: 08/18/19 Ordering Physician: INGRIS NYE MD Procedure(s): CHEST, 2 VIEWS PA & LAT Report Number(s): [id number] Accession Number(s): [id number] cc: KEYLA JOHNSON APRN; INGRIS NYE MD EXAM: CHEST FRONTAL AND LATERAL VIEWS HISTORY: Chest pain. COMPARISON: Compared to 09/08/2018. FINDINGS: Heart size and mediastinal contour remain within normal limits. No acute infiltrates. Normal vascularity with no pleural fluid or pneumothorax. Scoliosis is noted, stable. Hardware of the lower cervical spine. The bony thorax has no acute finding. IMPRESSION: No acute cardiopulmonary process. Education Provided to Patient and Family: * Call and make follow-up appt w/ Keyla Johnson APRN, in 5-7 days or sooner. Will need to be seen for migraine management and recommended GI referral. * Continue your Omeprazole at home as before admission. 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 You should do the injection immediately as soon as you can feel a headache coming on; then rest and get in an environment that is quiet and dark if possible. If the headache is not completely gone in 1 hour or it comes back within 24 hrs. take another injection. [facility] pharmacy is ordering this medication for your pick-up on Sunday. The pharmacist will teach you how to give your injections and educate you more about the medication. There will be a refill at the pharmacy for 2 cartridges to pick up driver after you have used the first 2. Do not throw your syringe kit away; keep it put away at home and hidden to prevent any contamination or use by anyone else. The medication and it's syringe system is meant only for your use and the Imitrex use. * GERD diet as discussed---see handout. Decrease your caffeine use to 1/2 and 1/2 caffeine/non-caffeine mixture when making your coffee. Gradually decrease your caffeine use to 1 serving per day. * Follow-up with your PCP, Keyla Johnson APRN, for annual health physicals and needed labs and testing for your age. Avoidance of the health checks can lead to many issues later. Be proactive and take care of yourself. Follow-ups: Follow-up Keyla Johnson APRN, in 5-7 days or sooner problems. Recommend GI referral for further evaluation and probably needed EGD. Discharge Disposition: Home Hospital Course: Ava Dorantes is a pleasant 64 yo female patient of Keyla Johnson APRN, w/ history frequent ER visits mainly for headaches who presented to [facility] ([facility]) ER 08/18/2019 14:26 w/ c/os new sudden onset 1 hr. 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 Patient noted that she awoke 08/18/2019 AM w/ her usual constant "throbbing/pounding" migraine headache located across her head/eyebrows rated 9-10/10 that progressed 2 hrs. ASSOCIATE DATA SCIENTIST to 3 episodes of forceful N/V of old digested food approx 5 cups total. She notes photosensitivity and noise sensitivity. Home treatment for chest pain was none, but calling someone to bring her to the ER. Prior to that she took Tylenol ES 2 caplets at 07:30 and 11:30 w/ absolutely no headache relief. Patient was admitted for observation for acute chest pain. Treatment in ER consisted of ASA chewable 325mg, Protonix 40mg IVP, Zofran 4mg IVP, Tylenol 650mg PO, and NS IVF replenishment. ER w-u noted EKG=NSR w/o ST changes or ectopy, rate 70's; D-Dimer 407.66 Normal; CMP essentially WNL; CBC WNL except Neut% 78.7; CXR=No acute cardiopulmonary process. Upon admission to Inpatient Unit, the patient had no chest pain and remained CP free for the remainder of her stay. Her headache was still rated 9/10 w/ some nausea prevailing. Imitrex 6mg/0.5 ml was given subQ @ 17:41 w/ pain resolving to 0/10 until 20:00 when it slowly started to reappear and was treated w/ another dose of Imitrex and completely resolved for the remainder of her stay and discharge. Nausea w/o vomiting upon arrival to the floor was also resolved w/ headache treatment. Patient was made NPO w/ ice chips initially and around 03:00 08/19/2019 she had a cup of coffee (drinks 4 cups/day w/ ice tea "hooked" per patient), jello, and crackers w/ good toleration. She was progressed to a soft diet for breakfast and experience no N/V prior to discharge w/ no further mediation therapy from her initial dose Zofran 4mg IVP in ER. 08/19/2019 7:45 AM ARBORICULTURIST exam revealed patient slept intermittently due to frequent VS q 1 hr X4, labs and routine hospital care. She had no complaints at visit---headache, N/V, and chest pain were all completely resolved. Her diet was advanced as noted previously w/ good toleration. She was encouraged to be up and about for discharge early afternoon w/ no furhter issues occuring. AM labs : CBC was WNL; CMP K+ 3.38 slightly low w/ previous N/V and fluid hydration, Cl 112.3 slightly H, Total Protein 5.87, Globulin 3.40, otherwise WNL; Troponins X 3 < 0,012. Telemetry remained NSR w/o ST changes or significant ectopy. Last Vital Signs Temp 98.2 F 08/19/19 09:47 Pulse 85 08/19/19 09:47 Resp 18 08/19/19 09:47 BP 106/67 08/19/19 09:47 Pulse Ox 99 08/19/19 09:47 HEENT: Eyes-no redness, swelling or d/c. Ears: pinna w/o tenderness/pain. Normal hearing. Pharynx: w/o injection, cobblestoning, lesions or PND. No dysphagia. Neck: Supple; NT; No lymphadenopathy Lungs: CTA. No rales, rhonchi, crackles, or wheezing. No cough on exam. No retractions. Respirations easy and regular. RA O2 sat 99%. CVS: RRR; S1, S2. No murmurs or gallops; No edema. No cyanosis; NBB Abdomen: Soft, NT, no rebound tenderness or guarding, no organomegaly or masses. RONALD/SO present. Extremities: BARCENAS well w/ symmetry. Bilaterally X4 extremities strength 2+/4+ =. No edema. No muscular tenderness, erythema, or abnormalities X4 extremities. Ambulates w/ steady gait. Neurological: A/O X4. Cooperative and pleasant. Good eye contact. Up and about in room w/o assistance; steady. Normal gait. Speech clear. No other abnormalities noted. Skin: Dry & intact. No rashes or lesions noted. Plan: * Acute Chest Pain, Resolved--Appears to have been other than cardiac w/ serial Troponins negative, CXR negative, D-Dimer negative, and EKG/telemetry monitoring NSR w/o ectopy or ST changes. The burning chest pain is likely d/t GI issues--possible PUD, GERD, vs other issues. I have highly encouraged the patient to get a GI consult for further evaluation and treatment. She needs to change her diet to less fast foods and decrease her caffeine intake significantly. She is hesitant to "give up" her coffee, but is willing at this time to try 1/2 and 1/2 combination of decaf and caffeine coffee grounds. F-U appt. w/ PCP 5-7 days or sooner problems. Return to ER if symptoms return or worsen. * Migraine Headache, Resolved at present but notes frequency of her headaches is starting to increase to 1 headache every 2-3 weeks that can be disabling for her. Patient received almost immediate relief w/ Imitrex 6mg/0.5ml subQ w/ repeat dose approximately 3 hrs later when headache began to recur. Immediate administration of Imitrex was very effective w/ complete resolution during her hospital stay. Patient found upon admission that her insurance via employer was not in effect. ARBORICULTURIST was able to order Brand name Imitrex 6mg/0.5ml Syringe Kit ([id number])containing 2 doses via [employer] at a discounted rate $34.59 and Rx for Refill cartridges #2 Brand name ([id number]) discounted rate $40.83 w/ assistance of [facility] Pharmacist, Flora Cheema. Contacted [employer] and assured RX received, medications Brand Name only to be ordered and ready for pick-up 08/22/2019. Patient agrees and will pick up driver medication on Sunday as arranged. Handout given and discussed re: migraine headache triggers, treatment and Imitrex. F-U w/ PCP for further evaluation and medication management/prophylaxis. * N/V, Resolved--Control of headache is the hinton here. Millie worked well in ER w/ Imitrex therapy. GI consult as noted under Acute Chest Pain. No home Rx g iven but w/ likely GERD, needs to continue Omeprazole and GERD diet/lifestyle changes as discussed. * DVT/VTE ProphylaxisStable. Lovenox; SCD's; Up in room w/ ambulation as soon as symptoms controlled. No symptoms or physical exam evidence of DVTE initially or on discharge. Disposition: Discharge time: 55 minutes 08/19/2019 14:00 Discharged home stable w/ F-U PCP 5-7 days or sooner problems. Discharge planning including avenues of Imitrex RX/funding d/t no insurance involving case management, Olivia Hansen, pharmacist, Flora Cheema, nurse huddle, patient educations, calling RX pharmacy to assure acceptance and receival and special ordering for name Brand w/ [facility], and test results/ chart review. Patient left hospital to return home 08/19/2019
[2019-08-19] MEDS: LOVENOX SUBCUT SCH (08:10)
[2019-08-19] MEDS ORDERED: PRILOSEC PO SCH (09:00)
[2019-08-19 09:48] VITALS: BP 106/67; TEMP 98.2
[2019-08-19] MEDS ORDERED: NEXIUM IV IVP SCH (15:00)
== END 2019-08-19 14:00 | disposition home or self-care (01) ==
LOC: MEDSURG B 14:25 → ED 14:25 → MEDSURG B 17:12
PROVIDERS: ADMIT Nurse Practitioner Family; ATTEND Nurse Practitioner Family
DX: R11.0 Nausea; K21.9 Gastro-esophageal reflux disease without esophagitis; G43.919 Migraine, unspecified, intractable, without status migrainosus; R07.9 Chest pain, unspecified